=== PATIENT | female | born 1950 | race Caucasian/White ===

== ENCOUNTER 2017-09-30 04:59 | Observation (INO) | payer MEDICAID, MEDICARE ==
[2017-09-30] MEDS ORDERED: NITROGLYCERIN SL TABS 0.4 MG TAB SUBLINGUAL PRN (05:31)
--- NOTE | 2017-09-30 05:39 | ED ---
Chest Pain HPI - General Chief Complaint: Chest Pain Stated Complaint: Cardiology consult Time Seen by Provider: 09/30/17 05:13 Source: patient, EMS Mode of arrival: EMS Limitations: no limitations - History of Present Illness MD Complaint: chest pain -: hour(s) Onset: during rest Pain Location: substernal Pain Radiation: none Severity: moderate Quality: heaviness Consistency: constant Improves With: nothing Worsens With: nothing Treatments Prior to Arrival: aspirin, oxygen - Related Data On Oral Contraceptives: No Home Medications Medication Instructions Recorded Confirmed Zolpidem [Ambien] 5 mg PO HS 01/02/15 01/02/15 Previous Rx's Medication Instructions Recorded Aspirin 1 tab PO DAILY #30 chew 01/10/15 Atorvastatin [Lipitor] 20 mg PO HS #14 tab 01/10/15 Collagenase [Santyl] 1 applic TOPICAL DAILY #10 applic 01/10/15 Escitalopram [Lexapro] 10 mg PO DAILY #7 tab 01/10/15 Gabapentin 600 mg PO 0000,0600,1200,1800 #28 01/10/15 tablet Hydrocodone/Acetaminophen [[place] 1 tab PO Q6HR PRN #10 tablet 01/10/15 5-325] Isosorbide Dinitrate 30 mg PO DAILY #14 tablet 01/10/15 LORazepam [Ativan] 1 mg PO DAILY PRN #10 tab 01/10/15 Nicotine Polacrilex [Nicorette] 2 mg BUCCAL Q4HR PRN #30 gum 01/10/15 Omeprazole [PriLOSEC] 20 mg PO DAILY #14 capsule. 01/10/15 Vancomycin Oral Solution 250 mg PO Q6HR #280 ml 01/10/15 Zolpidem [Ambien] 5 mg PO HS #7 tab 01/10/15 amLODIPine [Norvasc] 10 mg PO DAILY #14 tab 01/10/15 clonazePAM [KlonoPIN] 0.25 mg PO TID@0800,1200,1600 #21 01/10/15 dose clonazePAM [KlonoPIN] 2 mg PO DAILY@1900 #7 dose 01/10/15 glipiZIDE [Glucotrol] 5 mg PO AC-BRKFST #14 tab 01/10/15 metFORMIN HCL 1 tab PO BID #28 tablet 01/10/15 metroNIDAZOLE [Flagyl] 500 mg PO TID #30 tab 01/10/15 Allergies Allergy/AdvReac Type Severity Reaction Status Date / Time tetanus and diphtheria Allergy Unknown Verified 01/02/15 20:26 toxoids [tetanus & diphtheria toxoids] adsorbed Allergy Unknown Uncoded 01/02/15 20:26 Review of Systems ROS Statement: Those systems with pertinent positive or pertinent negative responses have been documented in the HPI. ROS Other: All systems not noted in ROS Statement are negative. Constitutional: Denies: fever, chills, weakness Eyes: Denies: vision change Respiratory: Denies: cough, dyspnea, wheezes Cardiovascular: Reports: chest pain. Denies: palpitations, edema, syncope Gastrointestinal: Denies: abdominal pain, nausea, vomiting Genitourinary: Denies: dysuria, hematuria Musculoskeletal: Denies: back pain Skin: Denies: rash Neurological: Denies: headache, weakness, numbness Psychiatric: Reports: anxiety EKG Findings - EKG Results: EKG: interpreted by ERMD, sinus rhythm (Rate approximately 85 bpm), normal axis , normal ST/T - Blocks, [place], Hypertrophy, ST Abn: AV and intraventricular conduction: right bundle branch block (fixed/ intermittent, complete/incomplete) Past Medical History Past Medical History: Coronary Artery Disease (CAD), Diabetes Mellitus, Hyperlipidemia, Hypertension Additional Past Medical History / Comment(s): Osteomyelitis, arthritis, viral encephalopathy History of Any Multi-Drug Resistant Organisms: C-DIFF Date of last positivie culture/infection: 01/05/15 MDRO Source:: Stool Past Surgical History: Cholecystectomy, Hysterectomy, Orthopedic Surgery, Tonsillectomy Additional Past Surgical History / Comment(s): Amputation right great toe, Surgery on R-knee, Past Anesthesia/Blood Transfusion Reactions: No Reported Reaction Additional Past Anesthesia/Blood Transfusion Reaction / Comment(s): No previous blood transfusions. Past Psychological History: Anxiety Smoking Status: Current every day smoker Past Alcohol Use History: Abuse Past Drug Use History: Marijuana - Past Family History Father Family Medical History: Coronary Artery Disease (CAD), Myocardial Infarction ([place] ) Additional Family Medical History / Comment(s): Father at age 82 from a massive myocardial infarction. Mother Family Medical History: CVA/TIA Additional Family Medical History / Comment(s): Mother at age 76 from a CVA. Brother(s) Family Medical History: Cancer Additional Family Medical History / Comment(s): Patient has 3 brothers. One brother has from pancreatic cancer. 2 brothers are alive and one has diverticulitis. Patient does not have any sisters. She has one son that lives in [place]. General Exam Limitations: no limitations General appearance: alert, in no apparent distress, anxious Head exam: Present: atraumatic, normocephalic Eye exam: Present: normal appearance. Absent: scleral icterus, conjunctival injection ENT exam: Present: mucous membranes dry Neck exam: Present: normal inspection Respiratory exam: Present: normal lung sounds bilaterally. Absent: respiratory distress, wheezes, rales, rhonchi, stridor Cardiovascular Exam: Present: regular rate, normal rhythm, normal heart sounds. Absent: systolic murmur, diastolic murmur, rubs, gallop GI/Abdominal exam: Present: soft. Absent: distended, tenderness, guarding, rebound, mass Extremities exam: Present: normal capillary refill, other (Amputation of the first toe.). Absent: pedal edema, calf tenderness Back exam: Present: normal inspection. Absent: CVA tenderness (R), CVA tenderness (L) Neurological exam: Present: alert Skin exam: Present: warm, dry, intact, normal color. Absent: rash Course Vital Signs 09/30/17 05:09 Temperature 98.3 F Pulse Rate 88 Respiratory 17 Rate Blood Pressure 173/89 O2 Sat by Pulse 98 Oximetry Disposition Clinical Impression: Chest pain, Steroid-induced psychosis Disposition: ADMITTED IP TO THIS HOSP Condition: Good Instructions: Chest Pain (ED) Is patient prescribed a controlled substance at d/c from ED?: No Referrals: Reinaldo Randall DO [Primary Care Provider] - 1-2 days
[2017-09-30 07:44] LABS: Glucose,Whole Blood 158 mg/dL (75-99)
--- NOTE | 2017-09-30 08:17 | P.CRDCN ---
History of Present Illness Consult date: 09/30/17 Chief complaint: Chest discomfort History of present illness: This is a 67-year-old female patient with a past medical history significant for diabetes as well as significant history of smoking presented to the hospital complaining of chest discomfort. The patient was in her usual state of health until this past Thursday she started experiencing pressure across the chest without any radiation to the arms or neck or shoulders and without any associated symptoms. She did not have any shortness of breath, sweating, dizziness or lightheadedness or syncope. The patient initially presented to [facility] and subsequently she was transferred to [facility]. She stated that she underwent a heart catheterization about a year ago and that came in to be unremarkable for coronary artery disease according to her and the patient was started on medications for which she called it " small artery". She is pain-free at this point of time. The first set of cardiac enzymes came in to be unremarkable and I am in process of obtaining 2 more sets of cardiac enzymes. The EKG showed sinus rhythm without significant ST or T-wave abnormalities concerning for ischemia. The patient is diabetic. Beside that she is a smoker. No significant family history of coronary artery disease. Past Medical History Past Medical History: Coronary Artery Disease (CAD), Diabetes Mellitus, Hyperlipidemia, Hypertension Additional Past Medical History / Comment(s): Osteomyelitis, arthritis, viral encephalopathy History of Any Multi-Drug Resistant Organisms: C-DIFF Date of last positivie culture/infection: 01/05/15 MDRO Source:: Stool Past Surgical History: Cholecystectomy, Hysterectomy, Orthopedic Surgery, Tonsillectomy Additional Past Surgical History / Comment(s): Amputation right great toe, Surgery on R-knee, Past Anesthesia/Blood Transfusion Reactions: No Reported Reaction Additional Past Anesthesia/Blood Transfusion Reaction / Comment(s): No previous blood transfusions. Past Psychological History: Anxiety Smoking Status: Current every day smoker Past Alcohol Use History: Abuse Past Drug Use History: Marijuana - Past Family History Father Family Medical History: Coronary Artery Disease (CAD), Myocardial Infarction ([place] ) Additional Family Medical History / Comment(s): Father at age 82 from a massive myocardial infarction. Mother Family Medical History: CVA/TIA Additional Family Medical History / Comment(s): Mother at age 76 from a CVA. Brother(s) Family Medical History: Cancer Additional Family Medical History / Comment(s): Patient has 3 brothers. One brother has from pancreatic cancer. 2 brothers are alive and one has diverticulitis. Patient does not have any sisters. She has one son that lives in [place]. Medications and Allergies Home Medications Medication Instructions Recorded Confirmed Type Zolpidem [Ambien] 5 mg PO HS 01/02/15 01/02/15 History Aspirin 1 tab PO DAILY #30 chew 01/10/15 Rx Atorvastatin [Lipitor] 20 mg PO HS #14 tab 01/10/15 Rx Collagenase [Santyl] 1 applic TOPICAL DAILY #10 applic 01/10/15 Rx Escitalopram [Lexapro] 10 mg PO DAILY #7 tab 01/10/15 Rx Gabapentin 600 mg PO 0000,0600,1200,1800 #28 01/10/15 Rx tablet Hydrocodone/Acetaminophen [[place] 1 tab PO Q6HR PRN #10 tablet 01/10/15 Rx 5-325] Isosorbide Dinitrate 30 mg PO DAILY #14 tablet 01/10/15 Rx LORazepam [Ativan] 1 mg PO DAILY PRN #10 tab 01/10/15 Rx Nicotine Polacrilex [Nicorette] 2 mg BUCCAL Q4HR PRN #30 gum 01/10/15 Rx Omeprazole [PriLOSEC] 20 mg PO DAILY #14 capsule.dr 01/10/15 Rx Vancomycin Oral Solution 250 mg PO Q6HR #280 ml 01/10/15 Rx Zolpidem [Ambien] 5 mg PO HS #7 tab 01/10/15 Rx amLODIPine [Norvasc] 10 mg PO DAILY #14 tab 01/10/15 Rx clonazePAM [KlonoPIN] 0.25 mg PO TID@0800,1200,1600 #21 01/10/15 Rx dose clonazePAM [KlonoPIN] 2 mg PO DAILY@1900 #7 dose 01/10/15 Rx glipiZIDE [Glucotrol] 5 mg PO AC-BRKFST #14 tab 01/10/15 Rx metFORMIN HCL 1 tab PO BID #28 tablet 01/10/15 Rx metroNIDAZOLE [Flagyl] 500 mg PO TID #30 tab 01/10/15 Rx Allergies Allergy/AdvReac Type Severity Reaction Status Date / Time tetanus and diphtheria Allergy Unknown Verified 01/02/15 20:26 toxoids [tetanus & diphtheria toxoids] adsorbed Allergy Unknown Uncoded 01/02/15 20:26 Physical Exam Vitals: Vital Signs Temp Pulse Pulse Resp BP BP Pulse Ox 09/30/17 07:50 97.7 F 76 16 121/74 98 09/30/17 05:09 98.3 F 88 17 173/89 98 Intake and Output 09/29/17 09/30/17 09/30/17 22:59 06:59 14:59 Other: Weight 66.224 kg 64 kg - Constitutional General appearance: no acute distress - Respiratory Respiratory: bilateral: CTA - Cardiovascular Rhythm: regular Heart sounds: normal: S1, S2 Results Cardiac Enzymes 09/30/17 Range/Units 05:22 Troponin I <0.012 (0.000-0.034) ng/mL Current Medications Generic Name Dose Route Start Last Admin Trade Name Freq PRN Reason Stop Dose Admin Aspirin 325 mg 10/01/17 09:00 Aspirin PO DAILY ROYA Sodium Chloride 1,000 mls @ 100 mls/hr 09/30/17 05:45 Saline 0.9% IV .Q10H ROYA Nitroglycerin 0.4 mg 09/30/17 05:31 Nitrostat SUBLINGUAL Q5M PRN Chest Pain Intake and Output 09/29/17 09/30/17 09/30/17 22:59 06:59 14:59 Other: Weight 66.224 kg 64 kg Patient Weight 10/01/17 06:59 Weight 64 kg Assessment and Plan Assessment: Assessment #1 atypical chest discomfort #2 diabetes #3 significant history of smoking Plan #1 acute coronary event to be ruled out. #2 we'll obtain 2 more sets of serial cardiac enzymes #3 obtain an echocardiogram was Doppler #4 follow-up with the patient. Thank you for allowing us participate in her care.
[2017-09-30 11:59] LABS: Glucose,Whole Blood 234 mg/dL (75-99)
[2017-09-30 12:01] LABS: Creatine Kinase 204 U/L (30-135)
[2017-09-30 12:15] LABS: Creatine Kinase MB 1.5 ng/mL (0.0-2.4); Troponin I <0.012 ng/mL (0.000-0.034)
[2017-09-30] MEDS ORDERED: ALPRAZolam 0.25 MG TAB PO STA (13:59)
--- NOTE | 2017-09-30 14:04 | ECHOF ---
Referral Reason: MEASUREMENTS -------- HEIGHT: 170.2 cm WEIGHT: 64.0 kg BP: 121/74 IVSd: 1.3 cm (0.6 - 1.1) LVIDd: 2.9 cm (3.9 - 5.3) LVPWd: 1.1 cm (0.6 - 1.1) IVSs: 1.5 cm LVIDs: 1.6 cm LVPWs: 1.8 cm Ao Diam: 2.6 cm (2.0 - 3.7) AV Cusp: 1.9 cm (1.5 - 2.6) LA Diam: 2.9 cm (2.7 - 3.8) MV EXCURSION: 17.007 mm (> 18.000) MV EF SLOPE: 31 mm/s (70 - 150) EPSS: 0.4 cm MV E Hayder: 0.52 m/s MV DecT: 167 ms MV A Hayder: 0.80 m/s MV E/A Ratio: 0.65 AV maxP.89 mmHg AV meanP.13 mmHg RAP: 5.00 mmHg RVSP: 12.51 mmHg FINDINGS -------- Sinus rhythm. This was a technically good study. The left ventricular size is normal. There is mild concentric left ventricular hypertrophy. Overa ll left ventricular systolic function is normal with, an EF between 55 - 60 %. The right ventricle is normal in size and function. The left atrium is normal in size. The right atrium is normal in size. Aortic valve is trileaflet and is mildly thickened. There is trace mitral regurgitation. Mild tricuspid regurgitation present. The right ventricular systolic pressure, as measured by Doppl er, is 12.51mmHg. Pulmonic valve appears structurally normal. The aortic root size is normal. The pericardium is normal. CONCLUSIONS -------- 1. Sinus rhythm. 2. This was a technically good study. 3. The left ventricular size is normal. 4. There is mild concentric left ventricular hypertrophy. 5. Overall left ventricular systolic function is normal with, an EF between 55 - 60 %. 6. The right ventricle is normal in size and function. 7. The left atrium is normal in size. 8. The right atrium is normal in size. 9. Aortic valve is trileaflet and is mildly thickened. 10. There is trace mitral regurgitation. 11. Mild tricuspid regurgitation present. 12. The right ventricular systolic pressure, as measured by Doppler, is 12.51mmHg. 13. Pulmonic valve appears structurally normal. 14. The aortic root size is normal. 15. The pericardium is normal. PRISON TEACHER: Kathi Banks RDCS
[2017-09-30] MEDS: metFORMIN 500 MG TAB PO SCH ×2 (14:09→20:43)
[2017-09-30] MEDS: ISOSORBIDE MONONITRATE ER 30 MG TAB.ER.24H PO SCH (14:09)
[2017-09-30] MEDS: LISINOPRIL 20 MG TAB PO SCH (14:09)
[2017-09-30] MEDS: GABAPENTIN 300 MG CAP PO SCH ×3 (14:09→20:43)
[2017-09-30] MEDS: FAMOTIDINE 20 MG TAB PO SCH ×2 (14:10→19:36)
[2017-09-30] MEDS: DULoxetine HCL 60 MG CAPSULE.DR PO SCH (14:10)
--- NOTE | 2017-09-30 16:33 | P.HPIM ---
History of Present Illness H&P Date: 09/30/17 Chief Complaint: Chest pain Patient is a 67-year-old female with a known history of hypertension, hyperlipidemia, diabetes type 2 and bilateral diabetic peripheral neuropathy and nicotine addiction came to ER with complaints of chest discomfort. Patient has been having chest pressure across the chest for the past 3 days. Denied any radiation of the pain to the neck and arm. No associated nausea vomiting or diaphoresis shortness of breath. Patient was initially presented to [facility] and subsequently was transferred to [facility]. Denied any complaints of cough or sputum production. No fever no chills. Patient says that she had a cardiac catheterization several years ago was about 6-7 years ago. No history of PCI in the past. Patient says that her brother has I aortic aneurysm and heart problems. Initial workup including EKG and troponins have been negative. EKG showed normal sinus rhythm without acute ST-T wave changes. Laboratory data from [facility] was reviewed. Patient does have a history of anxiety and bipolar disorder for which patient is on Seroquel and Cymbalta. Patient is being followed by primary care physician. Never seen by psychiatry the past. Discussed with her son in detail and was told that during previous admission she became more maniac and had to admit to inpatient psychiatric unit from where she left without discharge and was taken into police custody at that time. Review of Systems Constitutional: Patient denies any fever or chills . No generalized weakness or weight loss. Abdomen: Patient denied nausea vomiting and diarrhea and abdominal pain. Cardiovascular: Patient denies any chest pain or short of breath no palpitations. Respiratory: patient denied any cough is from production. No shortness of breath Neurologic: Patient denied any numbness or tingling headache. Musculoskeletal: Patient denies any complaints of joint swelling or deformity. Skin: Negative Psychiatric: Anxious Endocrine: No heat or cold intolerance. No recent weight gain. Genitourinary: No dysuria or hematuria. All other 14 point ROS negative except the above Past Medical History Past Medical History: Coronary Artery Disease (CAD), Diabetes Mellitus, GERD/ Reflux, Hyperlipidemia, Hypertension, Liver Disease Additional Past Medical History / Comment(s): NIDDM type II, bilateral peripheral neuropathy bilateral feet, 2014 diabetic ulcer R great toe/foot with amputation, 2017 pt states she had osteomylitis R 4th toe, viral neningitis/ encephalopathy, hepatitis C tx and cured, PCOS, UTIs History of Any Multi-Drug Resistant Organisms: C-DIFF Date of last positivie culture/infection: 01/05/15 MDRO Source:: Stool Past Surgical History: Cholecystectomy, Hysterectomy, Orthopedic Surgery, Tonsillectomy Additional Past Surgical History / Comment(s): Amputation right great toe/part of foot, R knee surgery for large cyst/cartilage removed, 2005 cardiac cath showed 1 vessel disease/treated medically, hysterectomy and left a piece of the R ovary, EGD/colonoscopy. Past Anesthesia/Blood Transfusion Reactions: No Reported Reaction Additional Past Anesthesia/Blood Transfusion Reaction / Comment(s): No previous blood transfusions. Smoking Status: Current every day smoker - Past Family History Father Family Medical History: Coronary Artery Disease (CAD), Myocardial Infarction ([place] ) Additional Family Medical History / Comment(s): Father at age 82 from a massive myocardial infarction. Mother Family Medical History: CVA/TIA Additional Family Medical History / Comment(s): Mother at age 76 from a CVA. Mother had TB Brother(s) Family Medical History: Cancer Additional Family Medical History / Comment(s): Patient has 3 brothers. One brother has from pancreatic cancer. Another brother has stage IV kidney failure and an aortic aneurysm that needs surgery. Medications and Allergies Home Medications Medication Instructions Recorded Confirmed Type Aspirin 81 mg PO DAILY 09/30/17 09/30/17 History DULoxetine HCL [Cymbalta] 60 mg PO DAILY 09/30/17 09/30/17 History Gabapentin 600 mg PO QID 09/30/17 09/30/17 History Isosorbide Mononitrate ER [Imdur] 30 mg PO DAILY 09/30/17 09/30/17 History Lisinopril [Zestril] 20 mg PO DAILY 09/30/17 09/30/17 History Pravastatin Sodium [Pravachol] 80 mg PO HS 09/30/17 09/30/17 History QUEtiapine [SEROquel] 25 mg PO HS 09/30/17 09/30/17 History Ranitidine HCl [Zantac] 150 mg PO BID 09/30/17 09/30/17 History amLODIPine [Norvasc] 10 mg PO AC-SUPPER 09/30/17 09/30/17 History metFORMIN HCL 1,000 mg PO BID 09/30/17 09/30/17 History Allergies Allergy/AdvReac Type Severity Reaction Status Date / Time tetanus and diphtheria Allergy Unknown Verified 09/30/17 11:35 toxoids [tetanus & diphtheria toxoids] adsorbed Allergy Unknown Uncoded 01/02/15 20:26 Physical Exam Vitals: Vital Signs Temp Pulse Pulse Resp BP BP Pulse Ox 09/30/17 11:35 98.5 F 76 16 181/78 96 09/30/17 07:50 97.7 F 76 16 121/74 98 09/30/17 05:09 98.3 F 88 17 173/89 98 Intake and Output 09/29/17 09/30/17 09/30/17 22:59 06:59 14:59 Other: Voiding Method Toilet Weight 66.224 kg 64 kg PHYSICAL EXAMINATION: Patient is lying in the bed comfortably, no acute distress, awake alert and oriented.. HEENT: Normocephalic. Neck is supple. Pupils reactive. Nostrils clear. Oral cavity is moist. Ears reveal no drainage. Neck reveals no JVD, carotid bruits, or thyromegaly. CHEST EXAMINATION: Trachea is central. Symmetrical expansion. Lung alexandre clear to auscultation and percussion. CARDIAC: Normal S1, S2 with no gallops. No murmurs ABDOMEN: Soft. Bowel sounds normal. No organomegaly. No abdominal bruits. Extremities: reveal no edema. No clubbing or cyanosis Neurologically awake, alert, oriented x3 with well-coordinated movements. No focal deficits noted Skin: No rash or skin lesions. Psychiatric: Coperative. He anxious and wants to go home. Denied any suicidal ideation. Musculoskeletal: No joint swelling or deformity. Normal range of motion. Results Labs: Abnormal Lab Results - Last 24 Hours (Table) 09/30/17 09/30/17 09/30/17 Range/Units 07:20 11:00 11:55 POC Glucose (mg/dL) 158 H 234 H (75-99) mg/dL Total Creatine Kinase 204 H (30-135) U/L Thrombosis Risk Factor Assmnt - DVT/VTE Prophylaxis DVT/VTE Prophylaxis: Pharmacologic Prophylaxis ordered - Choose All That Apply Any of the Below Risk Factors Present?: Yes Other Risk Factors: Yes Each Risk Factor Represents 2 Points: Age 61-74 years Other congenital or acquired thrombophilia - If yes, enter type in comment: No Thrombosis Risk Factor Assessment Total Risk Factor Score: 2 Thrombosis Risk Factor Assessment Level: Low Risk Assessment and Plan Assessment: Atypical chest pain/pressure. Rule out acute coronary syndrome. Anxiety and depression Nicotine addiction Diabetes type 2 [id number] Hypertension Previous history of cardiac cath patient about 6-8 years ago DVT prophylaxis Plan: Patient will be continued on telemetry monitoring and serial EKG and troponins. We'll 2 negative. Cardiology is following. 2-D echocardiogram was ordered. We'll also consult psychiatry for further elevation of generalized anxiety and in view of previous inpatient psychiatric admission. Continue to follow closely and further recommendations based on the clinical course. Time with Patient: Greater than 30
[2017-09-30 17:29] LABS: Glucose,Whole Blood 161 mg/dL (75-99)
[2017-09-30] MEDS ORDERED: amLODIPine 10 MG TAB PO SCH (17:30)
[2017-09-30] MEDS: INSULIN ASPART 100 UNIT/ML 1 ML 10 ML VIAL SQ SCH ×2 (18:24→20:44)
[2017-09-30 18:50] LABS: Creatine Kinase 214 U/L (30-135)
[2017-09-30 19:01] LABS: Creatine Kinase MB 1.6 ng/mL (0.0-2.4); Troponin I <0.012 ng/mL (0.000-0.034)
[2017-09-30] MEDS: SODIUM CHLORIDE 0.9% 1,000 ML IV SCH ×2 (19:35→22:38)
[2017-09-30 20:53] LABS: Glucose,Whole Blood 223 mg/dL (75-99)
[2017-09-30] MEDS ORDERED: QUEtiapine 25 MG TAB PO SCH (21:00)
[2017-09-30] MEDS ORDERED: PRAVASTATIN SODIUM 80 MG TAB PO SCH (21:00)
[2017-10-01 02:37] LABS: Hemoglobin A1C 7.6 % (4.0-6.0)
[2017-10-01 03:19] LABS: Cholesterol 204 mg/dL (<200); HDL Cholesterol 57 mg/dL (40-60); LDL Cholesterol,Calculated 98 mg/dL (0-99); Triglycerides 244 mg/dL (<150)
[2017-10-01 03:45] VITALS: RESP 16
[2017-10-01 07:35] LABS: Glucose,Whole Blood 146 mg/dL (75-99)
[2017-10-01] MEDS ORDERED: ASPIRIN 325 MG TAB PO SCH (09:00)
[2017-10-01] MEDS ORDERED: ASPIRIN 81 MG PO SCH (09:00)
[2017-10-01] MEDS: LISINOPRIL 20 MG TAB PO SCH (10:14)
[2017-10-01] MEDS: DULoxetine HCL 60 MG CAPSULE.DR PO SCH (10:15)
[2017-10-01] MEDS: FAMOTIDINE 20 MG TAB PO SCH (10:15)
[2017-10-01] MEDS: INSULIN ASPART 100 UNIT/ML 1 ML 10 ML VIAL SQ SCH (10:16)
[2017-10-01] MEDS: GABAPENTIN 300 MG CAP PO SCH (10:16)
[2017-10-01] MEDS: metFORMIN 500 MG TAB PO SCH (10:16)
[2017-10-01] MEDS: ISOSORBIDE MONONITRATE ER 30 MG TAB.ER.24H PO SCH (10:16)
[2017-10-01 11:49] VITALS: BP 110/70; PULSE 72; TEMP 98
--- NOTE | 2017-10-01 13:41 | P.PN ---
Subjective Mrs. Choudhary is a pleasant 67-year-old female past medical history significant for diabetes, hypertension and dyslipidemia. Cardiac enzymes negative x3 including set at [facility]. Echo 15 reveals preserved left ventricular systolic function with ejection fraction 55-60%. Blood pressure 110/70 heart rate 72 afebrile maintaining oxygen saturation on room air. Patient was seen in consultation by psychiatric services steroid induced rian. As well as noncompliance with her antipsychotic medication. Denies any further symptoms of chest discomfort, shortness of breath, dizziness or palpitations. Telemetry tracings have been unremarkable. Objective - Vital Signs Vital signs: Vital Signs Temp 98 F 10/01/17 11:48 Pulse 72 10/01/17 11:48 Resp 16 10/01/17 11:48 BP 110/70 10/01/17 11:48 Pulse Ox 93 L 10/01/17 11:48 Intake & Output 09/30/17 10/01/17 10/01/17 18:59 06:59 18:59 Intake Total 350 240 Balance 350 240 Weight 64 kg Intake: Oral 350 240 Other: Voiding Method Toilet Toilet Toilet - Exam GENERAL: Well-appearing, well-nourished and in no acute distress. NECK: Supple without JVD or thyromegaly. LUNGS: Breath sounds clear to auscultation bilaterally. Respiration equal and unlabored. No wheezes, rales or rhonchi. HEART: Regular rate and rhythm without murmurs, rubs or gallops. S1 and S2 heard. EXTREMITIES: Normal range of motion, no edema. No clubbing or cyanosis. Peripheral pulses intact. - Labs Labs: Abnormal Lab Results - Last 24 Hours (Table) 09/30/17 09/30/17 09/30/17 Range/Units 05:22 17:27 18:05 POC Glucose (mg/dL) 161 H (75-99) mg/dL Total Creatine Kinase 214 H (30-135) U/L Triglycerides 244 H (<150) mg/dL Cholesterol 204 H (<200) mg/dL 09/30/17 10/01/17 Range/Units 20:23 06:43 POC Glucose (mg/dL) 223 H 146 H (75-99) mg/dL Total Creatine Kinase (30-135) U/L Triglycerides (<150) mg/dL Cholesterol (<200) mg/dL Assessment and Plan Assessment: ASSESSMENT Chest pain, atypical. Resolved. An acute coronary event has been ruled out. Hypertension Dyslipidemia PLAN Stable from a cardiac perspective. Follow up with primary bench lay out technician upon discharge. She states she sees a bench lay out technician out of town but unsure of name. If not she can see Dr. Tracey. Nurse Practitioner note has been reviewed, I agree with a documented findings and plan of care. Patient was seen and examined.
== END 2017-10-01 12:35 | disposition home or self-care (01) ==
LOC: EC 04:59 → 3OBS 05:31 → EEVIPCON 05:31 → 3OBS 10-01 11:02
PROVIDERS: ADMIT Internal Medicine; ATTEND Internal Medicine
DX: R07.89 Other chest pain (principal); I25.10 Atherosclerotic heart disease of native coronary artery without angina pectoris; E11.42 Type 2 diabetes mellitus with diabetic polyneuropathy; I10 Essential (primary) hypertension; F29 Unspecified psychosis not due to a substance or known physiological condition; T38.0X5A Adverse effect of glucocorticoids and synthetic analogues, initial encounter; E28.2 Polycystic ovarian syndrome; E78.5 Hyperlipidemia, unspecified; F31.9 Bipolar disorder, unspecified; F41.1 Generalized anxiety disorder; Z91.19 Patient's noncompliance with other medical treatment and regimen; M19.90 Unspecified osteoarthritis, unspecified site; Z16.24 Resistance to multiple antibiotics; F17.200 Nicotine dependence, unspecified, uncomplicated; Z79.82 Long term (current) use of aspirin; Z79.84 Long term (current) use of oral hypoglycemic drugs; Z79.899 Other long term (current) drug therapy; Z88.7 Allergy status to serum and vaccine; Z90.49 Acquired absence of other specified parts of digestive tract; Z89.411 Acquired absence of right great toe; Z86.61 Personal history of infections of the central nervous system; Z87.39 Personal history of other diseases of the musculoskeletal system and connective tissue; Z90.710 Acquired absence of both cervix and uterus; Z82.49 Family history of ischemic heart disease and other diseases of the circulatory system; Z82.3 Family history of stroke; Z80.0 Family history of malignant neoplasm of digestive organs; Z83.79 Family history of other diseases of the digestive system; Z83.1 Family history of other infectious and parasitic diseases; Z84.1 Family history of disorders of kidney and ureter
CPT/HCPCS: 99285 ×2; 36415; 93005; 93306; 80061; 82550; 82553; 84484; 83036; G0378 ×2

== ENCOUNTER 2018-02-12 18:46 | Emergency (ER) | payer MEDICARE ==
--- NOTE | 2018-02-12 20:07 | ED ---
Psych HPI - General Source: patient, police Mode of arrival: ambulatory <Julia Olivarez - Last Filed: 02/13/18 00:31> <Jakub Roldan - Last Filed: 02/13/18 02:56> - General Chief Complaint: Psychiatric Symptoms Stated Complaint: Petitioned Time Seen by Provider: 02/12/18 19:50 - History of Present Illness Initial Comments: 67-year-old female patient is brought into the emergency department by police on a pickup order for possible self-harm. Patient states that she has been having arguments with her digital production manager. States she has called the police multiple times it doesn't seem like they are listing her anything to be blowing her. She states that today she did call the composition molder and stated that she wanted to harm others, she states she felt this way so she could get this year about this as she has to deal with the [place] police any longer. Patient denies any current suicidal or homicidal ideation. She denies any current physical symptoms or concerns. The patient apparently has a legal guardian who states that she is concerned that the patient is not admitted to the mental health unit she will harm herself. supervisor frame sample and pattern order states she was sending threatening messages to her digital production manager. Patient denies any history of suicide attempt. Patient denies any recent rash, fever, chills, shortness breath, chest pain, abdominal pain, nausea, vomiting, diarrhea, constipation, back pain, numbness, tingling, dizziness, weakness, hematuria, dysuria, urinary urgency, urinary frequency, headache, visual changes, or any other complaints. (Julia Olivarez) - Related Data Home Medications Medication Instructions Recorded Confirmed Aspirin 81 mg PO DAILY 09/30/17 02/12/18 DULoxetine HCL [Cymbalta] 60 mg PO DAILY 09/30/17 02/12/18 Gabapentin 600 mg PO QID 09/30/17 02/12/18 Isosorbide Mononitrate ER [Imdur] 30 mg PO DAILY 09/30/17 02/12/18 Pravastatin Sodium [Pravachol] 80 mg PO HS 09/30/17 02/12/18 Ranitidine HCl [Zantac] 150 mg PO BID 09/30/17 02/12/18 metFORMIN HCL 1,000 mg PO BID 09/30/17 02/12/18 INSULIN LISPRO (humaLOG) [humaLOG] See Protocol SQ DIRECTED 02/12/18 02/12/18 Lisinopril 30 mg PO DAILY 02/12/18 02/12/18 Multivitamins, Thera [Multivitamin 1 tab PO DAILY 02/12/18 02/12/18 (formulary)] QUEtiapine [SEROquel] 200 mg PO HS 02/12/18 02/12/18 amLODIPine [Norvasc] 10 mg PO DAILY 02/12/18 02/12/18 hydrOXYzine PAMOATE [Vistaril] 50 mg PO Q12HR PRN 02/12/18 02/12/18 lamoTRIgine [LaMICtal] 100 mg PO HS 02/12/18 02/12/18 lamoTRIgine [LaMICtal] 200 mg PO HS 02/12/18 02/12/18 Allergies Allergy/AdvReac Type Severity Reaction Status Date / Time lithium Allergy Unknown Verified 02/12/18 20:35 tetanus and diphtheria Allergy Unknown Verified 02/12/18 20:35 toxoids [tetanus & diphtheria toxoids] adsorbed Allergy Unknown Uncoded 02/12/18 18:52 Review of Systems ROS Other: All systems not noted in ROS Statement are negative. <Julia Olivarez - Last Filed: 02/13/18 00:31> ROS Other: All systems not noted in ROS Statement are negative. <Jakub Roldan - Last Filed: 02/13/18 02:56> ROS Statement: Those systems with pertinent positive or pertinent negative responses have been documented in the HPI. 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 Past Anesthesia/Blood Transfusion Reactions: No Reported Reaction Additional Past Anesthesia/Blood Transfusion Reaction / Comment(s): No previous blood transfusions. Past Psychological History: Anxiety Smoking Status: Current every day smoker - Past Family History Father Family Medical History: Coronary Artery Disease (CAD), Myocardial Infarction ([place] ) Additional Family Medical History / Comment(s): Father at age 82 from a massive myocardial infarction. Mother Family Medical History: CVA/TIA Additional Family Medical History / Comment(s): Mother at age 76 from a CVA. Mother had TB Brother(s) Family Medical History: Cancer Additional Family Medical History / Comment(s): Patient has 3 brothers. One brother has from pancreatic cancer. Another brother has stage IV kidney failure and an aortic aneurysm that needs surgery. <Julia Olivarez M - Last Filed: 02/13/18 00:31> General Exam Limitations: no limitations General appearance: alert, in no apparent distress, other (Physical well- developed, well-nourished adult female patient in no acute distress. Vital signs upon presentation are temperature 98.0F, pulse 106, respirations 22, blood pressure 157/77, pulse ox 97% on room air.) Eye exam: Present: normal appearance, PERRL, EOMI. Absent: scleral icterus, conjunctival injection, periorbital swelling ENT exam: Present: normal exam, normal oropharynx, mucous membranes moist Respiratory exam: Present: normal lung sounds bilaterally. Absent: respiratory distress, wheezes, rales, rhonchi, stridor Cardiovascular Exam: Present: regular rate, normal rhythm, normal heart sounds. Absent: systolic murmur, diastolic murmur, rubs, gallop, clicks GI/Abdominal exam: Present: soft, normal bowel sounds. Absent: distended, tenderness, guarding, rebound, rigid Neurological exam: Present: alert, oriented X3, CN II-XII intact Psychiatric exam: Present: normal affect, normal mood Skin exam: Present: warm, dry, intact, normal color. Absent: rash <Julia Olivarez M - Last Filed: 02/13/18 00:31> Vital Signs 02/12/18 02/13/18 18:50 02:11 Temperature 98 F Pulse Rate 106 H 74 Respiratory 22 16 Rate Blood Pressure 157/77 119/65 O2 Sat by Pulse 97 98 Oximetry Medical Decision Making - Lab Data Result diagrams: 02/12/18 21:02 02/12/18 21:02 - EKG Data -: EKG Interpreted by Fl <Julia Olivarez - Last Filed: 02/13/18 00:31> - Lab Data Result diagrams: 02/12/18 21:02 02/12/18 21:02 <Jakub Roldan - Last Filed: 02/13/18 02:56> - Lab Data Lab Results 02/12/18 02/12/18 02/13/18 Range/Units 21:02 21:02 02:00 WBC 11.5 H (3.8-10.6) k/uL RBC 4.76 (3.80-5.40) m/uL Hgb 14.5 (11.4-16.0) gm/dL Hct 43.1 (34.0-46.0) % MCV 90.6 (80.0-100.0) fL MCH 30.4 (25.0-35.0) pg MCHC 33.5 (31.0-37.0) g/dL RDW 13.0 (11.5-15.5) % Plt Count 405 (150-450) k/uL Neutrophils % 57 % Lymphocytes % 33 % Monocytes % 4 % Eosinophils % 3 % Basophils % 1 % Neutrophils # 6.6 (1.3-7.7) k/uL Lymphocytes # 3.9 (1.0-4.8) k/uL Monocytes # 0.5 (0-1.0) k/uL Eosinophils # 0.4 (0-0.7) k/uL Basophils # 0.1 (0-0.2) k/uL Sodium 138 (137-145) mmol/L Potassium 4.7 (3.5-5.1) mmol/L Chloride 107 (98-107) mmol/L Carbon Dioxide 23 (22-30) mmol/L Anion Gap 8 mmol/L BUN 19 H (7-17) mg/dL Creatinine 0.94 (0.52-1.04) mg/dL Est GFR (CKD-EPI)AfAm 73 (>60 ml/min/1.73 sqM) Est GFR (CKD-EPI)NonAf 63 (>60 ml/min/1.73 sqM) Glucose 97 (74-99) mg/dL Calcium 10.5 H (8.4-10.2) mg/dL Total Bilirubin 0.4 (0.2-1.3) mg/dL AST 25 (14-36) U/L ALT 28 (9-52) U/L Alkaline Phosphatase 98 (38-126) U/L Total Protein 7.2 (6.3-8.2) g/dL Albumin 4.3 (3.5-5.0) g/dL Urine Color Yellow Urine Appearance Cloudy H (Clear) Urine pH 5.5 (5.0-8.0) Ur Specific [place] 1.025 (1.001-1.035) Urine Protein Trace H (Negative) Urine Glucose (UA) Negative (Negative) Urine Ketones Trace H (Negative) Urine Blood Negative (Negative) Urine Nitrite Negative (Negative) Urine Bilirubin Negative (Negative) Urine Urobilinogen 2.0 (<2.0) mg/dL Ur Leukocyte Esterase Large H (Negative) Urine RBC 9 H (0-5) /hpf Urine WBC 85 H (0-5) /hpf Ur Squamous Epith Cells 7 H (0-4) /hpf Urine Bacteria Rare H (None) /hpf Urine Mucus Rare H (None) /hpf Urine Opiates Screen Not Detected (NotDetected) Ur Oxycodone Screen Not Detected (NotDetected) Urine Methadone Screen Not Detected (NotDetected) Ur Propoxyphene Screen Not Detected (NotDetected) Ur Barbiturates Screen Not Detected (NotDetected) U Tricyclic Antidepress Detected H (NotDetected) Ur Phencyclidine Scrn Not Detected (NotDetected) Ur Amphetamines Screen Not Detected (NotDetected) U Methamphetamines Scrn Not Detected (NotDetected) U Benzodiazepines Scrn Not Detected (NotDetected) Urine Cocaine Screen Not Detected (NotDetected) U Marijuana (THC) Screen Detected H (NotDetected) - EKG Data EKG Comments: EKG obtained at 2102 shows normal sinus rhythm with a right bundle branch block. Ventricular rate 73, UT interval 200, QRS duration 134, QT 412, QTC 453. (Julia Olivarez) Disposition <Julia Olivarez - Last Filed: 02/13/18 00:31> Is patient prescribed a controlled substance at d/c from ED?: No <Jakub Roldan - Last Filed: 02/13/18 02:56> Clinical Impression: Adjustment reaction Disposition: HOME SELF-CARE Condition: Good Instructions: Mood Disorders (ED) Referrals: Reinaldo Randall DO [Primary Care Provider] - 1-2 days
[2018-02-12 21:52] LABS: Basophils # (A) 0.1 k/uL (0-0.2); Basophils % (A) 1 %; Eosinophils # (A) 0.4 k/uL (0-0.7); Eosinophils % (A) 3 %; HCT 43.1 % (34.0-46.0); HGB 14.5 gm/dL (11.4-16.0); Lymphocytes # (A) 3.9 k/uL (1.0-4.8); Lymphocytes % (A) 33 %; MCH 30.4 pg (25.0-35.0); MCHC 33.5 g/dL (31.0-37.0); MCV 90.6 fL (80.0-100.0); Mean Platelet Volume 6.6; Monocytes # (A) 0.5 k/uL (0-1.0); Monocytes % (A) 4 %; Neutrophils # (A) 6.6 k/uL (1.3-7.7); Neutrophils % (A) 57 %; Platelet Count 405 k/uL (150-450); RBC 4.76 m/uL (3.80-5.40); WBC 11.5 k/uL (3.8-10.6)
[2018-02-12 21:55] LABS: Albumin 4.3 g/dL (3.5-5.0); Calcium 10.5 mg/dL (8.4-10.2); Potassium 4.7 mmol/L (3.5-5.1); Total Bilirubin 0.4 mg/dL (0.2-1.3); Total Protein 7.2 g/dL (6.3-8.2)
[2018-02-13 02:12] VITALS: PULSE 74
[2018-02-13] MEDS ORDERED: QUEtiapine 200 MG TAB PO STA (02:32)
[2018-02-13] MEDS ORDERED: lamoTRIgine 100 MG TAB PO STA (02:32)
[2018-02-13 02:35] LABS: Appearance,Urine Cloudy (Clear); Bacteria,Urine Rare /hpf; Bilirubin,Urine Negative (Negative); Blood,Urine Negative (Negative); Color,Urine Yellow; Glucose,Urine (UA) Negative (Negative); Ketones,Urine Trace (Negative); Leukocyte Esterase,Urine Large (Negative); Mucus,Urine Rare /hpf; Nitrite,Urine Negative (Negative); PH, Urine 5.5 (5.0-8.0); Protein,Urine Trace (Negative); RBC,Urine 9 /hpf (0-5); Specific Gravity,Urine 1.025 (1.001-1.035); Squamous Epithelial Cell,Urine 7 /hpf (0-4); WBC,Urine 85 /hpf (0-5)
[2018-02-13 02:43] LABS: Amphetamine Screen,Urine Not Detected (NotDetected); Barbiturate Screen,Urine Not Detected (NotDetected); Benzodiazepines Screen,Urine Not Detected (NotDetected); Cocaine Screen,Urine Not Detected (NotDetected); Methadone Screen, Urine Not Detected (NotDetected); Opiate Screen,Urine Not Detected (NotDetected); Oxycodone Screen, Urine Not Detected (NotDetected); Phencyclidine Screen,Urine Not Detected (NotDetected); Tricyclic Antidepressant,Urine Detected (NotDetected); Urn Cannabinoid Scrn Detected (NotDetected)
[2018-02-13 03:56] VITALS: BP 159/82; RESP 18; TEMP 98
== END 2018-02-13 03:56 | disposition home or self-care (01) ==
LOC: EC 18:46 → EEVIPCON 18:46 → EC 02-13 03:56
DX: F43.20 Adjustment disorder, unspecified (principal); I25.10 Atherosclerotic heart disease of native coronary artery without angina pectoris; E11.40 Type 2 diabetes mellitus with diabetic neuropathy, unspecified; K21.9 Gastro-esophageal reflux disease without esophagitis; E78.5 Hyperlipidemia, unspecified; I10 Essential (primary) hypertension; F41.9 Anxiety disorder, unspecified; F17.200 Nicotine dependence, unspecified, uncomplicated; Z95.818 Presence of other cardiac implants and grafts; Z79.82 Long term (current) use of aspirin; Z79.4 Long term (current) use of insulin; Z79.899 Other long term (current) drug therapy; Z91.048 Other nonmedicinal substance allergy status; Z88.7 Allergy status to serum and vaccine
CPT/HCPCS: 36415; 80053; 80306; 81001; 82075; 85025; 93005; 99285

== ENCOUNTER → 2018-04-01 | Outpatient (CLI) | payer MEDICARE ==
--- NOTE | 2018-04-01 16:40 | XR ---
EXAMINATION TYPE: XR chest 2V DATE OF EXAM: 04/01/2018 COMPARISON: 01/10/2015 HISTORY: Chest pain TECHNIQUE: Frontal and lateral views of the chest are obtained. FINDINGS: There is no focal air space opacity, pleural effusion, or pneumothorax seen. The cardiac silhouette size is within normal limits. The osseous structures are intact. IMPRESSION: No acute cardiopulmonary process.
--- NOTE | 2018-04-02 12:15 | ECHOF ---
Referral Reason:R07.9 Chest pain MEASUREMENTS -------- HEIGHT: 170.2 cm WEIGHT: 63.5 kg BP: RVIDd: 2.8 cm (< 3.3) IVSd: 1.2 cm (0.6 - 1.1) LVIDd: 3.1 cm (3.9 - 5.3) LVPWd: 1.3 cm (0.6 - 1.1) IVSs: 1.4 cm LVIDs: 2.4 cm LVPWs: 1.7 cm LA Diam: 2.9 cm (2.7 - 3.8) MV EXCURSION: 17.354 mm (> 18.000) MV EF SLOPE: 118 mm/s (70 - 150) EPSS: 0.3 cm MV E Hayder: 0.34 m/s MV DecT: 210 ms MV A Hayder: 1.02 m/s MV E/A Ratio: 0.33 RAP: 5.00 mmHg RVSP: 11.68 mmHg FINDINGS -------- Sinus rhythm. This was a technically adequate study. The left ventricular size is normal. There is borderline concentric left ventricular hypertrophy. Overall left ventricular systolic function is low-normal with, an EF between 50 - 55 %. The right ventricle is normal in size. The left atrial size is normal. The right atrial size is normal. There is mild aortic valve sclerosis. There is no evidence of aortic regurgitation. Mild mitral annular calcification present. Mild mitral regurgitation is present. Mild tricuspid regurgitation present. There is no evidence of pulmonary hypertension. The right v entricular systolic pressure, as measured by Doppler, is 11.68mmHg. There is no pulmonic regurgitation present. The aortic root size is normal. There is no pericardial effusion. CONCLUSIONS -------- 1. The left ventricular size is normal. 2. There is borderline concentric left ventricular hypertrophy. 3. Overall left ventricular systolic function is low-normal with, an EF between 50 - 55 %. 4. The right ventricle is normal in size. 5. The left atrial size is normal. 6. The right atrial size is normal. 7. There is mild aortic valve sclerosis. 8. Mild mitral annular calcification present. 9. Mild mitral regurgitation is present. 10. Mild tricuspid regurgitation present. 11. There is no evidence of pulmonary hypertension. 12. The right ventricular systolic pressure, as measured by Doppler, is 11.68mmHg. 13. There is no pulmonic regurgitation present. 14. The aortic root size is normal. 15. There is no pericardial effusion. TAILINGS WORKER: Martina Herrera RDCS
== END | disposition home or self-care (01) ==
LOC: RADECHMAIN 15:10
PROVIDERS: ATTEND Internal Medicine
DX: I08.3 Combined rheumatic disorders of mitral, aortic and tricuspid valves (principal); I10 Essential (primary) hypertension
CPT/HCPCS: 71046; 93306

== ENCOUNTER 2019-10-18 01:15 | Inpatient (IN) | payer MEDICARE ==
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
[2019-10-18 02:38] LABS: Basophils # (A) 0.2 k/uL (0-0.2); Basophils % (A) 1 %; Eosinophils # (A) 0.4 k/uL (0-0.7); Eosinophils % (A) 3 %; HCT 46.7 % (34.0-46.0); HGB 15.3 gm/dL (11.4-16.0); Lymphocytes # (A) 4.3 k/uL (1.0-4.8); Lymphocytes % (A) 36 %; MCH 30.8 pg (25.0-35.0); MCHC 32.8 g/dL (31.0-37.0); MCV 93.8 fL (80.0-100.0); Mean Platelet Volume 7.1; Monocytes # (A) 0.5 k/uL (0-1.0); Monocytes % (A) 5 %; Neutrophils # (A) 6.5 k/uL (1.3-7.7); Neutrophils % (A) 55 %; Platelet Count 508 k/uL (150-450); RBC 4.98 m/uL (3.80-5.40); RDW 12.3 % (11.5-15.5)
[2019-10-18 02:47] LABS: ALT 43 U/L (4-34); AST 45 U/L (14-36); Acetaminophen <10.0 ug/mL; African American GFR (CKD) 61 (>60 ml/min/1.73 sqM); Alcohol <10 mg/dL; Alkaline Phosphatase 94 U/L (38-126); Anion Gap 12 mmol/L; Blood Urea Nitrogen 19 mg/dL (7-17); Calcium 10.5 mg/dL (8.4-10.2); Carbon Dioxide 20 mmol/L (22-30); Chloride 103 mmol/L (98-107); Glucose 215 mg/dL (74-99); Non-African American GFR(CKD) 53 (>60 ml/min/1.73 sqM); Potassium 4.5 mmol/L (3.5-5.1); Salicylate <1.0 mg/dL; Sodium 135 mmol/L (137-145); Total Bilirubin 0.5 mg/dL (0.2-1.3); Total Protein 7.6 g/dL (6.3-8.2)
[2019-10-18 02:52] LABS: Appearance,Urine Cloudy (Clear); Bilirubin,Urine Negative (Negative); Blood,Urine Negative (Negative); Color,Urine Light Yellow; Glucose,Urine (UA) 3+ (Negative); Ketones,Urine Negative (Negative); Leukocyte Esterase,Urine Moderate (Negative); Nitrite,Urine Negative (Negative); Protein,Urine Negative (Negative); RBC,Urine 3 /hpf (0-5); Specific Gravity,Urine 1.005 (1.001-1.035); Squamous Epithelial Cell,Urine 1 /hpf (0-4); Urobilinogen,Urine <2.0 mg/dL (<2.0); WBC,Urine 14 /hpf (0-5)
[2019-10-18 02:56] LABS: Amphetamine Screen,Urine Not Detected (NotDetected); Barbiturate Screen,Urine Not Detected (NotDetected); Benzodiazepines Screen,Urine Not Detected (NotDetected); Cocaine Screen,Urine Not Detected (NotDetected); Methadone Screen, Urine Not Detected (NotDetected); Opiate Screen,Urine Not Detected (NotDetected); Oxycodone Screen, Urine Not Detected (NotDetected); Phencyclidine Screen,Urine Not Detected (NotDetected); Tricyclic Antidepressant,Urine Detected (NotDetected); Urn Cannabinoid Scrn Detected (NotDetected)
[2019-10-18 03:53] LABS: Glucose,Whole Blood 235 mg/dL (75-99)
[2019-10-18] MEDS: INSULIN ASPART (NovoLOG) 100 UNIT/ML VIAL SQ SCH ×3 (03:58→20:01)
[2019-10-18 05:02] LABS: Glucose,Whole Blood 244 mg/dL (75-99)
[2019-10-18] MEDS ORDERED: INSULIN ASPART (NovoLOG) 100 UNIT/ML VIAL SQ ONE (05:05)
[2019-10-18 09:02] LABS: Glucose,Whole Blood 192 mg/dL (75-99)
[2019-10-18] MEDS ORDERED: LORazepam 1 MG TAB PO STA (09:55)
[2019-10-18] MEDS: GABAPENTIN 400 MG CAP PO SCH ×2 (10:34→22:45)
[2019-10-18] MEDS ORDERED: QUEtiapine 100 MG TAB PO STA (12:14)
[2019-10-18] MEDS ORDERED: lamoTRIgine 100 MG TAB PO STA (12:14)
[2019-10-18] MEDS ORDERED: polyethylene glycoL 3350 17 GM POWD.PACK PO STA (14:47)
[2019-10-18 15:15] LABS: Glucose,Whole Blood 249 mg/dL (75-99)
[2019-10-18 19:49] LABS: Glucose,Whole Blood 313 mg/dL (75-99)
[2019-10-18] MEDS: carvediloL 6.25 MG TAB PO SCH (20:02)
[2019-10-18] MEDS ORDERED: carvediloL 6.25 MG TAB PO SCH (21:00)
[2019-10-18] MEDS ORDERED: IBUPROFEN 800 MG TAB PO PRN (21:31)
[2019-10-18] MEDS ORDERED: MAG HYDROX/AL HYDROX/SIMETH 30 ML CUP PO PRN (21:33)
[2019-10-18] MEDS ORDERED: MAGNESIUM HYDROXIDE 2,400 MG/10 ML CUP PO PRN (21:33)
[2019-10-18] MEDS ORDERED: LORazepam 2 MG/ML INJ IM PRN (21:35)
[2019-10-18] MEDS ORDERED: ACETAMINOPHEN TAB 325 MG TAB PO PRN (22:00)
[2019-10-18] MEDS ORDERED: QUEtiapine 100 MG TAB PO SCH (22:00)
[2019-10-18] MEDS ORDERED: INSULIN DETEMIR (LEVEMIR) 100 UNIT/ML SYR SQ SCH ×2 (22:00)
[2019-10-18 22:50] LABS: Glucose,Whole Blood 276 mg/dL (75-99)
--- NOTE | 2019-10-19 01:17 | P.CONS ---
History of Present Illness - Reason for Consult Consult date: 10/19/19 - History of Present Illness The patient is a 69-year-old female with a PMH of hypertension, hyperlipidemia, and type II DM who was brought in due to disorganized thought process and features of depression. She was admitted to the mental health unit where she was seen and evaluated earlier today. The patient noted feeling somewhat better and denied any active complaints. She denied chest pain, shortness of breath, fever, chills, nausea, vomiting. She reports taking insulin at home 25 units of Levemir at bedtime and 35 units in the morning. She also endorsed compliance with her remaining medications. Review of Systems Pertinent positives and negatives as discussed in HPI, a complete review of systems was performed and all other systems are negative. Past Medical History Past Medical History: Coronary Artery Disease (CAD), Diabetes Mellitus, GERD/Reflux, Hyperlipidemia, Hypertension, Liver Disease Additional Past Medical History / Comment(s): states "I have a purple bump on the inside of my lip",NIDDM type II, bilateral peripheral neuropathy bilateral feet, 2014 diabetic ulcer R great toe/foot with amputation, 2016 pt states she had osteomylitis R 4th toe, viral neningitis/encephalopathy, hepatitis C tx and cured, PCOS, UTIs History of Any Multi-Drug Resistant Organisms: C-DIFF Year Discovered:: 01/05/15 MDRO Source:: Stool Past Surgical History: Cholecystectomy, Hysterectomy, Orthopedic Surgery, Tonsillectomy Additional Past Surgical History / Comment(s): Amputation right great toe/part of foot, R knee surgery for large cyst/cartilage removed, 2005 cardiac cath showed 1 vessel disease/treated medically, hysterectomy and left a piece of the R ovary, EGD/colonoscopy. Past Anesthesia/Blood Transfusion Reactions: No Reported Reaction Additional Past Anesthesia/Blood Transfusion Reaction / Comm: No previous blood transfusions. Past Psychological History: Anxiety, Bipolar, PTSD Smoking Status: Current every day smoker Past Alcohol Use History: Abuse Past Drug Use History: Marijuana - Past Family History Father Family Medical History: Coronary Artery Disease (CAD), Myocardial Infarction ([place]) Additional Family Medical History / Comment(s): Father at age 82 from a massive myocardial infarction. Mother Family Medical History: CVA/TIA Additional Family Medical History / Comment(s): Mother at age 76 from a CVA. Mother had TB Brother(s) Family Medical History: Cancer Additional Family Medical History / Comment(s): Patient has 3 brothers. One brother has from pancreatic cancer. Another brother has stage IV kidney failure and an aortic aneurysm that needs surgery. Medications and Allergies Home Medications Medication Instructions Recorded Confirmed Type Isosorbide Mononitrate ER [Imdur] 30 mg PO QAM 09/30/17 10/18/19 History metFORMIN HCL 1,000 mg PO BID 09/30/17 10/18/19 History lamoTRIgine [LaMICtal] 200 mg PO HS 02/12/18 10/18/19 History lisinopriL 30 mg PO DAILY 02/12/18 10/18/19 History Aspirin EC [Ecotrin Low Dose] 81 mg PO DAILY 10/18/19 10/18/19 History Atorvastatin [Lipitor] 10 mg PO HS 10/18/19 10/18/19 History Carvedilol [Coreg] 6.25 mg PO BID 10/18/19 10/18/19 History Ergocalciferol [Vitamin D2] 50,000 unit PO Q7D 10/18/19 10/18/19 History Gabapentin 800 mg PO TID 10/18/19 10/18/19 History Ibuprofen [Motrin] 800 mg PO Q8H PRN 10/18/19 10/18/19 History Insulin Glargine,Hum.rec.anlog 55 unit SQ HS 10/18/19 10/18/19 History [Lantus Solostar] Omeprazole [PriLOSEC] 20 mg PO DAILY 10/18/19 10/18/19 History QUEtiapine FUMARATE 200 mg PO DAILY 10/18/19 10/18/19 History glipiZIDE [Glucotrol] 10 mg PO BID 10/18/19 10/18/19 History Allergies Allergy/AdvReac Type Severity Reaction Status Date / Time lithium AdvReac severe Verified 10/18/19 07:57 tremors tetanus and diphtheria AdvReac chest Verified 10/18/19 07:57 toxoids pain,high [tetanus & diphtheria blood toxoids] pressure Physical Exam Vitals: Vital Signs Temp Pulse Resp BP Pulse Ox 10/18/19 21:18 97 F L 92 14 116/73 95 10/18/19 19:51 94 12 133/72 96 10/18/19 16:32 95 16 108/65 98 10/18/19 14:27 97.7 F 87 18 121/77 100 10/18/19 12:31 92 12 114/76 98 10/18/19 10:35 97.4 F L 87 18 137/85 96 10/18/19 01:29 169/95 10/18/19 01:19 97.3 F L 94 16 192/100 98 General: non toxic, no distress, appears at stated age, overweight Derm: no unusual rashes/lesions no unusual ecchymoses, warm, dry Head: atraumatic, normocephalic, symmetric Eyes: EOMI, no lid lag, anicteric sclera, pupils equal round reactive to light ENT: Nose and ears atraumatic, no thrush, no pharyngeal erythema Neck: No thyromegaly, no cervical lymphadenopathy, trachea midline, supple Mouth: no lip lesion, mucus membranes moist Cardiovascular: S1S2 reg, no murmur, positive posterior tibial pulse bilateral, no edema, capillary refill less than 2 seconds Lungs: CTA bilateral, no rhonchi, no rales , no accessory muscle use Abdominal: soft, nontender to palpation, no guarding, no appreciable organomegaly, normal bowel sounds Ext: no gross muscle atrophy, muscle strength 5 out of 5 in all 4 extremities grossly, no contractures, Neuro: CN II-XI grossly intact, light touch intact all 4 extremities, finger to nose within normal limits, Psych: Alert, oriented, appropriate affect Results CBC & Chem 7: 10/18/19 02:30 10/18/19 02:30 Labs: Abnormal Lab Results - Last 24 Hours (Table) 10/18/19 10/18/19 10/18/19 Range/Units 02:30 02:30 02:30 WBC 12.0 H (3.8-10.6) k/uL Hct 46.7 H (34.0-46.0) % Plt Count 508 H (150-450) k/uL Sodium 135 L (137-145) mmol/L Carbon Dioxide 20 L (22-30) mmol/L BUN 19 H (7-17) mg/dL Creatinine 1.08 H (0.52-1.04) mg/dL Glucose 215 H (74-99) mg/dL POC Glucose (mg/dL) (75-99) mg/dL Calcium 10.5 H (8.4-10.2) mg/dL AST 45 H (14-36) U/L ALT 43 H (4-34) U/L Urine Appearance Cloudy H (Clear) Urine Glucose (UA) 3+ H (Negative) Ur Leukocyte Esterase Moderate H (Negative) Urine WBC 14 H (0-5) /hpf U Tricyclic Antidepress Detected H (NotDetected) U Marijuana (THC) Screen Detected H (NotDetected) 10/18/19 10/18/19 10/18/19 Range/Units 03:52 04:59 09:01 WBC (3.8-10.6) k/uL Hct (34.0-46.0) % Plt Count (150-450) k/uL Sodium (137-145) mmol/L Carbon Dioxide (22-30) mmol/L BUN (7-17) mg/dL Creatinine (0.52-1.04) mg/dL Glucose (74-99) mg/dL POC Glucose (mg/dL) 235 H 244 H 192 H (75-99) mg/dL Calcium (8.4-10.2) mg/dL AST (14-36) U/L ALT (4-34) U/L Urine Appearance (Clear) Urine Glucose (UA) (Negative) Ur Leukocyte Esterase (Negative) Urine WBC (0-5) /hpf U Tricyclic Antidepress (NotDetected) U Marijuana (THC) Screen (NotDetected) 10/18/19 10/18/19 10/18/19 Range/Units 15:13 19:44 22:44 WBC (3.8-10.6) k/uL Hct (34.0-46.0) % Plt Count (150-450) k/uL Sodium (137-145) mmol/L Carbon Dioxide (22-30) mmol/L BUN (7-17) mg/dL Creatinine (0.52-1.04) mg/dL Glucose (74-99) mg/dL POC Glucose (mg/dL) 249 H 313 H 276 H (75-99) mg/dL Calcium (8.4-10.2) mg/dL AST (14-36) U/L ALT (4-34) U/L Urine Appearance (Clear) Urine Glucose (UA) (Negative) Ur Leukocyte Esterase (Negative) Urine WBC (0-5) /hpf U Tricyclic Antidepress (NotDetected) U Marijuana (THC) Screen (NotDetected) Microbiology - Last 24 Hours (Table) 10/18/19 02:30 Urine Culture - Preliminary Urine,Clean Catch Assessment and Plan Plan: Type II DM -Continue with home insulin doses of Levemir 25 units daily at bedtime and 35 units a.m. -Insulin sliding scale and blood glucose monitoring -Hold oral hypoglycemics Hypertension, hyperlipidemia -Continue with home meds Thank you for allowing us to participate in the care of this patient. We will follow peripherally. Do not hesitate to contact us with questions. Someone can be reached from the [facility] hospitalist group at all hours of the day at [phone].
[2019-10-19] MEDS: INSULIN ASPART (NovoLOG) 100 UNIT/ML VIAL SQ SCH ×7 (03:00→21:16)
[2019-10-19 07:56] LABS: Glucose,Whole Blood 468 mg/dL (75-99)
[2019-10-19 08:00] LABS: Glucose,Whole Blood 454 mg/dL (75-99)
[2019-10-19] MEDS ORDERED: INSULIN ASPART (NovoLOG) 100 UNIT/ML VIAL SQ ONE (09:00)
[2019-10-19] MEDS: INSULIN DETEMIR (LEVEMIR) 100 UNIT/ML SYR SQ SCH ×2 (09:02→21:17)
[2019-10-19] MEDS: ASPIRIN 81 MG PO SCH (09:03)
[2019-10-19] MEDS: GABAPENTIN 400 MG CAP PO SCH ×3 (09:03→21:18)
[2019-10-19] MEDS: carvediloL 6.25 MG TAB PO SCH ×2 (09:03→16:31)
[2019-10-19] MEDS: ISOSORBIDE MONONITRATE ER 30 MG TAB.ER.24H PO SCH ×2 (09:04→09:19)
[2019-10-19] MEDS: metFORMIN 500 MG TAB PO SCH ×3 (09:04→21:18)
[2019-10-19] MEDS: lisinopriL 10 MG TAB PO SCH (09:04)
[2019-10-19] MEDS: glipiZIDE 10 MG TAB PO SCH ×2 (09:04→21:16)
[2019-10-19] MEDS: PANTOPRAZOLE 40 MG TABLET PO SCH (09:05)
[2019-10-19 09:07] LABS: Glucose,Whole Blood 453 mg/dL (75-99)
[2019-10-19 10:07] LABS: Basophils # (A) 0.1 k/uL (0-0.2); Basophils % (A) 1 %; Eosinophils # (A) 0.4 k/uL (0-0.7); Eosinophils % (A) 5 %; HCT 44.7 % (34.0-46.0); HGB 14.2 gm/dL (11.4-16.0); Lymphocytes # (A) 2.8 k/uL (1.0-4.8); Lymphocytes % (A) 37 %; MCH 30.7 pg (25.0-35.0); MCHC 31.8 g/dL (31.0-37.0); MCV 96.8 fL (80.0-100.0); Mean Platelet Volume 7.2; Monocytes # (A) 0.5 k/uL (0-1.0); Monocytes % (A) 6 %; Neutrophils # (A) 3.7 k/uL (1.3-7.7); Neutrophils % (A) 49 %; Platelet Count 397 k/uL (150-450); RBC 4.62 m/uL (3.80-5.40); RDW 12.4 % (11.5-15.5); WBC 7.6 k/uL (3.8-10.6)
[2019-10-19 10:11] LABS: Albumin 4.3 g/dL (3.5-5.0); Calcium 10.1 mg/dL (8.4-10.2); Potassium 5.3 mmol/L (3.5-5.1); Total Bilirubin 0.4 mg/dL (0.2-1.3); Total Protein 6.7 g/dL (6.3-8.2)
[2019-10-19 11:57] LABS: Glucose,Whole Blood 146 mg/dL (75-99)
[2019-10-19 12:36] LABS: Glucose,Whole Blood 92 mg/dL (75-99)
[2019-10-19] MEDS: LORazepam 1 MG TAB PO PRN (12:50)
[2019-10-19 14:18] LABS: Glucose,Whole Blood 154 mg/dL (75-99)
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
[2019-10-19 17:40] LABS: Glucose,Whole Blood 115 mg/dL (75-99)
[2019-10-19 18:45] LABS: Hemoglobin A1C 11.1 % (4.0-6.0)
[2019-10-19 19:55] LABS: Glucose,Whole Blood 210 mg/dL (75-99)
[2019-10-19] MEDS: ATORVASTATIN 10 MG TAB PO SCH (21:15)
[2019-10-19] MEDS: QUEtiapine 200 MG TAB PO SCH (21:18)
[2019-10-19] MEDS: lamoTRIgine 100 MG TAB PO SCH (21:18)
[2019-10-20] MEDS: LORazepam 1 MG TAB PO PRN ×2 (00:33→22:52)
[2019-10-20 01:57] VITALS: TEMP 98.7
[2019-10-20] MEDS: INSULIN DETEMIR (LEVEMIR) 100 UNIT/ML SYR SQ SCH ×2 (08:02→21:10)
[2019-10-20] MEDS: INSULIN ASPART (NovoLOG) 100 UNIT/ML VIAL SQ SCH ×7 (08:03→21:10)
[2019-10-20] MEDS: carvediloL 6.25 MG TAB PO SCH ×2 (08:03→16:59)
[2019-10-20 08:04] LABS: Glucose,Whole Blood 185 mg/dL (75-99)
[2019-10-20] MEDS: GABAPENTIN 400 MG CAP PO SCH ×3 (08:06→19:59)
[2019-10-20] MEDS: ASPIRIN 81 MG PO SCH (08:06)
[2019-10-20] MEDS: ISOSORBIDE MONONITRATE ER 30 MG TAB.ER.24H PO SCH (08:07)
[2019-10-20] MEDS: lisinopriL 10 MG TAB PO SCH (08:07)
[2019-10-20] MEDS: PANTOPRAZOLE 40 MG TABLET PO SCH (08:08)
[2019-10-20] MEDS: metFORMIN 500 MG TAB PO SCH ×2 (08:08→19:57)
[2019-10-20 08:33] VITALS: RESP 16
[2019-10-20 08:59] LABS: Basophils # (A) 0.1 k/uL (0-0.2); Basophils % (A) 1 %; Eosinophils # (A) 0.3 k/uL (0-0.7); Eosinophils % (A) 4 %; HCT 43.3 % (34.0-46.0); Lymphocytes # (A) 3.3 k/uL (1.0-4.8); Lymphocytes % (A) 40 %; MCH 30.7 pg (25.0-35.0); MCHC 32.4 g/dL (31.0-37.0); Mean Platelet Volume 7.4; Monocytes # (A) 0.4 k/uL (0-1.0); Monocytes % (A) 5 %; Neutrophils % (A) 49 %; Platelet Count 423 k/uL (150-450); RBC 4.56 m/uL (3.80-5.40); RDW 12.3 % (11.5-15.5); WBC 8.2 k/uL (3.8-10.6)
[2019-10-20] MEDS ORDERED: ERGOCALCIFEROL 50,000 UNIT CAP PO SCH (09:00)
[2019-10-20 09:14] LABS: Albumin 4.3 g/dL (3.5-5.0); Calcium 10.3 mg/dL (8.4-10.2); Potassium 5.1 mmol/L (3.5-5.1); Total Bilirubin 0.4 mg/dL (0.2-1.3); Total Protein 6.7 g/dL (6.3-8.2)
--- NOTE | 2019-10-20 09:32 | P.PN ---
Subjective Progress Note Date: 10/20/19 Principal diagnosis: Bipolar 1 depressed Subjective patient says that she slept well is going to groups denies any suicidality or homicidality talks fondly about her cats in her apartment Objective: Patient self-care is adequate good eye contact pleasant smile gait and station normal psychomotor activity is normal no evidence of psychosis she denies suicidality or homicidality Groups the patient has been attending she did not need much assistance was spontaneous speaking up with staff and patients reasonable focus Vital signs temperature is 98.7 heart rate 100 respiration 18 blood pressure 128/69 Labs: Hematology is fine general chemistry car shows her sugar running in the high 100 and GFR is elevated Patient slept about 4 hours last night Staff assessment: Patient appears calm oriented alert denying any suicidal or homicidal or psychotic symptoms taking good care of ADLs Assessment: Patient seems to be calming down tolerating her medicines still didn't sleep well she is good night's sleep tonight we'll look to discharge her tomorrow she does not seem to be agitated or suicidal Objective - Vital Signs Vital signs: Vital Signs Temp 98.7 F 10/20/19 00:33 Pulse 101 H 10/20/19 07:55 Resp 16 10/20/19 07:55 BP 106/67 10/20/19 07:55 Pulse Ox 96 10/19/19 09:00 - Labs CBC & Chem 7: 10/20/19 07:53 10/20/19 07:53 Labs: Abnormal Lab Results - Last 24 Hours (Table) 10/19/19 10/19/19 10/19/19 Range/Units 09:18 09:18 11:54 Sodium 135 L (137-145) mmol/L Potassium 5.3 H (3.5-5.1) mmol/L Chloride (98-107) mmol/L BUN 26 H (7-17) mg/dL Creatinine 1.09 H (0.52-1.04) mg/dL Glucose 448 H (74-99) mg/dL POC Glucose (mg/dL) 146 H (75-99) mg/dL Hemoglobin A1c 11.1 H (4.0-6.0) % Calcium (8.4-10.2) mg/dL ALT 37 H (4-34) U/L Triglycerides 233 H (<150) mg/dL HDL Cholesterol 35 L (40-60) mg/dL 10/19/19 10/19/19 10/19/19 Range/Units 14:14 17:39 19:54 Sodium (137-145) mmol/L Potassium (3.5-5.1) mmol/L Chloride (98-107) mmol/L BUN (7-17) mg/dL Creatinine (0.52-1.04) mg/dL Glucose (74-99) mg/dL POC Glucose (mg/dL) 154 H 115 H 210 H (75-99) mg/dL Hemoglobin A1c (4.0-6.0) % Calcium (8.4-10.2) mg/dL ALT (4-34) U/L Triglycerides (<150) mg/dL HDL Cholesterol (40-60) mg/dL 10/20/19 10/20/19 Range/Units 07:52 07:53 Sodium (137-145) mmol/L Potassium (3.5-5.1) mmol/L Chloride 108 H (98-107) mmol/L BUN 24 H (7-17) mg/dL Creatinine (0.52-1.04) mg/dL Glucose 165 H (74-99) mg/dL POC Glucose (mg/dL) 185 H (75-99) mg/dL Hemoglobin A1c (4.0-6.0) % Calcium 10.3 H (8.4-10.2) mg/dL ALT 36 H (4-34) U/L Triglycerides (<150) mg/dL HDL Cholesterol (40-60) mg/dL Microbiology - Last 24 Hours (Table) 10/18/19 02:30 Urine Culture - Final Urine,Clean Catch
[2019-10-20] MEDS: glipiZIDE 10 MG TAB PO SCH ×2 (09:37→19:55)
[2019-10-20 12:41] LABS: Glucose,Whole Blood 161 mg/dL (75-99)
[2019-10-20 12:45] VITALS: BMI 25.9
[2019-10-20 17:46] LABS: Glucose,Whole Blood 91 mg/dL (75-99)
[2019-10-20] MEDS: ATORVASTATIN 10 MG TAB PO SCH (19:55)
[2019-10-20] MEDS: QUEtiapine 200 MG TAB PO SCH (19:59)
[2019-10-20] MEDS: lamoTRIgine 100 MG TAB PO SCH (19:59)
[2019-10-20 20:15] LABS: Glucose,Whole Blood 254 mg/dL (75-99)
[2019-10-21 08:02] LABS: Glucose,Whole Blood 179 mg/dL (75-99)
[2019-10-21] MEDS: ISOSORBIDE MONONITRATE ER 30 MG TAB.ER.24H PO SCH (08:39)
[2019-10-21] MEDS: INSULIN ASPART (NovoLOG) 100 UNIT/ML VIAL SQ SCH ×4 (08:42→12:59)
[2019-10-21] MEDS: INSULIN DETEMIR (LEVEMIR) 100 UNIT/ML SYR SQ SCH (08:43)
[2019-10-21] MEDS: glipiZIDE 10 MG TAB PO SCH (08:43)
[2019-10-21] MEDS: carvediloL 6.25 MG TAB PO SCH (08:43)
[2019-10-21] MEDS: ASPIRIN 81 MG PO SCH (08:43)
[2019-10-21] MEDS: PANTOPRAZOLE 40 MG TABLET PO SCH (08:43)
[2019-10-21] MEDS: lisinopriL 10 MG TAB PO SCH (08:44)
[2019-10-21] MEDS: GABAPENTIN 400 MG CAP PO SCH (08:44)
[2019-10-21] MEDS: metFORMIN 500 MG TAB PO SCH (08:44)
[2019-10-21 08:49] VITALS: BP 137/69; PULSE 103
--- NOTE | 2019-10-21 09:41 | P.DS ---
Providers Date of admission: 10/18/19 21:20 Expected date of discharge: 10/21/19 Attending physician: Loren Rodriguez MD Consults: 10/18/19 21:33 Consult Physician Routine Consulting Provider: Jero Higgins Consult Reason/Comments: H&P and medical Do you want consulting provider notified?: Yes Primary care physician: [facility] Course: Patient was admitted to the psychiatric unit on 10/19/19 IDENTIFICATION DATA:The patient is a 69-year-old female with a PMH of hypertension, hyperlipidemia, and type II DM who was brought in due to disorganized thought process and features of depression. She was admitted to the mental health unit where she was seen and evaluated earlier today. The patient noted feeling somewhat better and denied any active complaints. She denied chest pain, shortness of breath, fever, chills, nausea, vomiting. She reports taking insulin at home 25 units of Levemir at bedtime and 35 units in the morning. She also endorsed compliance with her remaining medications which are Seroquel 100 each evening and Lamictal 200 each evening. She was very clear that she had not forgotten the Lamictal for more than one day at a time I did warn her about the danger of restarting Lamictal if she had been off. According to her desire we kept her on Lamictal 200 each evening and Seroquel 200 The patient attended groups where she evidenced adequate hygiene talked well with patients and staff seemed a little concrete a little help but basically participated well. She slept well Staff assessment is that the patient was somewhat vague took care of her hygiene psychomotor activity normal oriented to person place time and circumstance consistently denied suicidality or homicidality hallucinations or delusions and did not seem to be responding to voices could get a little irritable at times like when there is no food and she felt like she needed something because her sugar was low. Mental status exam: Patient is alert good eye contact responses fit the questions and are logical. Psychomotor activity is normal speech is normal gait and station are normal self-care is adequate response times normal denies suicidal or homicidal thought. She has follow-up arranged for counseling and medications I think that she is safe for discharge Assessment: The patient doesn't have a lot of insight into what was going on that got her in the hospital but she has a pretty decent plan for after discharge she is going to call the [facility] she has attended and get rides and get involved with the ladies there and she has already contacted her counselor and set up appointments and is committed to taking her medication so think the prognosis is fair Health Concerns: The patient has a lot of chronic issues such as CAD diabetes mellitus GERD hyperlipidemia hypertension and liver disease however she did not have any acute difficulties while in the hospital Pertinent Studies: She did have basic labs especially keeping track of her blood sugar and she was running along at about 254 max and 91 low and bouncing in between that she has some fragile control of her diabetes. She also hematology was fine general chemistry showed BUN a little high and chloride a little high and not thought to be acute problems Vital signs temperature is 98.7 heart rate 100 Blood Pressure 128/69 She Does Have Low Troubles Oxygenation Running) around 90 but sometimes goes as low as 76 Procedures: None Plan - Discharge Summary Discharge Rx Participant: No New Discharge Prescriptions: New lamoTRIgine [LaMICtal] 200 mg PO HS 30 Days #60 tab Insulin Detemir (Levemir) [Levemir] 25 unit SQ HS syr INSULIN ASPART (NovoLOG) [NovoLOG (formulary)] 3 unit SQ AC-TID vial INSULIN ASPART (NovoLOG) [NovoLOG (formulary)] 0 unit SQ ACHS vial Pantoprazole [Protonix] 40 mg PO DAILY #0 tablet. QUEtiapine [SEROquel] 200 mg PO HS 30 Days #30 tab Continue Isosorbide Mononitrate ER [Imdur] 30 mg PO QAM metFORMIN HCL 1,000 mg PO BID lisinopriL 30 mg PO DAILY Aspirin EC [Ecotrin Low Dose] 81 mg PO DAILY Atorvastatin [Lipitor] 10 mg PO HS Carvedilol [Coreg] 6.25 mg PO BID Ergocalciferol [Vitamin D2 (DRISDOL)] 50,000 unit PO Q7D glipiZIDE [Glucotrol] 10 mg PO BID Insulin Glargine,Hum.rec.anlog [Lantus Solostar] 55 unit SQ HS Omeprazole [PriLOSEC] 20 mg PO DAILY Gabapentin 800 mg PO TID Discontinued lamoTRIgine [LaMICtal] 200 mg PO HS Ibuprofen [Motrin] 800 mg PO Q8H PRN PRN Reason: Pain QUEtiapine FUMARATE 200 mg PO DAILY Discharge Medication List Isosorbide Mononitrate ER [Imdur] 30 mg PO QAM 09/30/17 [History] metFORMIN HCL 1,000 mg PO BID 09/30/17 [History] lisinopriL 30 mg PO DAILY 02/12/18 [History] Aspirin EC [Ecotrin Low Dose] 81 mg PO DAILY 10/18/19 [History] Atorvastatin [Lipitor] 10 mg PO HS 10/18/19 [History] Carvedilol [Coreg] 6.25 mg PO BID 10/18/19 [History] Ergocalciferol [Vitamin D2 (DRISDOL)] 50,000 unit PO Q7D 10/18/19 [History] Gabapentin 800 mg PO TID 10/18/19 [History] Insulin Glargine,Hum.rec.anlog [Lantus Solostar] 55 unit SQ HS 10/18/19 [History] Omeprazole [PriLOSEC] 20 mg PO DAILY 10/18/19 [History] glipiZIDE [Glucotrol] 10 mg PO BID 10/18/19 [History] INSULIN ASPART (NovoLOG) [NovoLOG (formulary)] 0 unit SQ ACHS vial 10/21/19 [Rx] INSULIN ASPART (NovoLOG) [NovoLOG (formulary)] 3 unit SQ AC-TID vial 10/21/19 [Rx] Insulin Detemir (Levemir) [Levemir] 25 unit SQ HS syr 10/21/19 [Rx] Pantoprazole [Protonix] 40 mg PO DAILY #0 tablet. 10/21/19 [Rx] QUEtiapine [SEROquel] 200 mg PO HS 30 Days #30 tab 10/21/19 [Rx] lamoTRIgine [LaMICtal] 200 mg PO HS 30 Days #60 tab 10/21/19 [Rx] Follow up Appointment(s)/Referral(s): [facility] [Outside] - 10/21/19 3:00 pm (Reinaldo Serrano DO [Primary Care Provider] - 1-2 days Activity/Diet/Wound Care/Special Instructions: Activity and diet as tolerated. Avoid the use of street drugs and alcohol. Take all medications as prescribed. When you are in need of refills on your medications please contact your medical provider and/or outpatient psychiatrist to have this done. Please go to scheduled outpatient appointment for aftercare treatment. If symptoms return or become worse, call the crisis line at and/or go to the nearest emergency room for evaluation.
[2019-10-21 12:50] LABS: Glucose,Whole Blood 93 mg/dL (75-99)
== END 2019-10-21 13:04 | disposition home or self-care (01) | DRG 885 ==
LOC: EC 01:15 → 3MHU 21:20
PROVIDERS: ADMIT Psychiatry & Neurology Psychiatry; ATTEND Psychiatry & Neurology Psychiatry
DX: F31.9 Bipolar disorder, unspecified (principal); R45.851 Suicidal ideations; E78.5 Hyperlipidemia, unspecified; E11.42 Type 2 diabetes mellitus with diabetic polyneuropathy; K21.9 Gastro-esophageal reflux disease without esophagitis; I25.10 Atherosclerotic heart disease of native coronary artery without angina pectoris; I10 Essential (primary) hypertension; F43.10 Post-traumatic stress disorder, unspecified; F17.210 Nicotine dependence, cigarettes, uncomplicated; K76.9 Liver disease, unspecified; Z62.810 Personal history of physical and sexual abuse in childhood; Z79.899 Other long term (current) drug therapy; Z79.82 Long term (current) use of aspirin; Z79.4 Long term (current) use of insulin; Z88.7 Allergy status to serum and vaccine; Z88.8 Allergy status to other drugs, medicaments and biological substances; Z90.710 Acquired absence of both cervix and uterus; Z87.440 Personal history of urinary (tract) infections; Z83.1 Family history of other infectious and parasitic diseases; Z90.49 Acquired absence of other specified parts of digestive tract; Z90.89 Acquired absence of other organs; Z89.411 Acquired absence of right great toe; Z82.49 Family history of ischemic heart disease and other diseases of the circulatory system; Z83.3 Family history of diabetes mellitus; Z82.3 Family history of stroke; Z80.0 Family history of malignant neoplasm of digestive organs; Z84.1 Family history of disorders of kidney and ureter; Z83.6 Family history of other diseases of the respiratory system; Z91.14 Patient's other noncompliance with medication regimen; Z90.721 Acquired absence of ovaries, unilateral; Z86.19 Personal history of other infectious and parasitic diseases
CPT/HCPCS: 36415; 80053; 80061; 80306; 80320; 80329; 81001; 82075; 83036; 83520; 84443; 84484; 85025; 87086; 99285

== ENCOUNTER 2019-10-27 01:31 | Emergency (ER) | payer MEDICARE ==
[2019-10-27] MEDS ORDERED: QUEtiapine 200 MG TAB PO STA (02:54)
[2019-10-27] MEDS ORDERED: ZIPRASIDONE 20 MG CAP PO STA (04:00)
[2019-10-27] MEDS ORDERED: lamoTRIgine 100 MG TAB PO STA (04:00)
[2019-10-27] MEDS ORDERED: GABAPENTIN 400 MG CAP PO STA (04:00)
[2019-10-27] MEDS ORDERED: GABAPENTIN 400 MG CAP ONE (04:54)
[2019-10-27] MEDS ORDERED: lamoTRIgine 100 MG TAB ONE (04:54)
[2019-10-27] MEDS ORDERED: QUEtiapine 200 MG TAB ONE (04:54)
[2019-10-27] MEDS ORDERED: ZIPRASIDONE 20 MG CAP ONE (04:54)
[2019-10-27 06:03] LABS: Calcium 10.3 mg/dL (8.4-10.2)
[2019-10-27 06:04] LABS: Appearance,Urine Cloudy (Clear); Bacteria,Urine Occasional /hpf; Bilirubin,Urine Negative (Negative); Blood,Urine Negative (Negative); Color,Urine Light Yellow; Glucose,Urine (UA) Negative (Negative); Ketones,Urine Negative (Negative); Leukocyte Esterase,Urine Large (Negative); Mucus,Urine Rare /hpf; Nitrite,Urine Negative (Negative); Protein,Urine Negative (Negative); RBC,Urine 12 /hpf (0-5); Specific Gravity,Urine 1.004 (1.001-1.035); Squamous Epithelial Cell,Urine 11 /hpf (0-4); Urobilinogen,Urine <2.0 mg/dL (<2.0); WBC,Urine 17 /hpf (0-5)
[2019-10-27 06:07] LABS: Amphetamine Screen,Urine Not Detected (NotDetected); Barbiturate Screen,Urine Not Detected (NotDetected); Benzodiazepines Screen,Urine Not Detected (NotDetected); Cocaine Screen,Urine Not Detected (NotDetected); Methadone Screen, Urine Not Detected (NotDetected); Opiate Screen,Urine Not Detected (NotDetected); Oxycodone Screen, Urine Not Detected (NotDetected); Phencyclidine Screen,Urine Not Detected (NotDetected); Tricyclic Antidepressant,Urine Detected (NotDetected); Urn Cannabinoid Scrn Not Detected (NotDetected)
[2019-10-27 06:23] LABS: Basophils # (A) 0.1 k/uL (0-0.2); Basophils % (A) 1 %; Eosinophils # (A) 0.3 k/uL (0-0.7); Eosinophils % (A) 3 %; HCT 43.8 % (34.0-46.0); HGB 14.3 gm/dL (11.4-16.0); Lymphocytes # (A) 4.9 k/uL (1.0-4.8); Lymphocytes % (A) 38 %; MCH 30.3 pg (25.0-35.0); MCHC 32.6 g/dL (31.0-37.0); MCV 93.1 fL (80.0-100.0); Mean Platelet Volume 6.8; Monocytes # (A) 0.6 k/uL (0-1.0); Monocytes % (A) 5 %; Neutrophils # (A) 6.7 k/uL (1.3-7.7); Neutrophils % (A) 52 %; Platelet Count 395 k/uL (150-450); RBC 4.71 m/uL (3.80-5.40); RDW 12.2 % (11.5-15.5); WBC 12.9 k/uL (3.8-10.6)
[2019-10-27] MEDS ORDERED: INSULIN ASPART (NovoLOG) 100 UNIT/ML VIAL SQ ONE (08:03)
[2019-10-27 08:08] LABS: Glucose,Whole Blood 324 mg/dL (75-99)
[2019-10-27] MEDS ORDERED: LORazepam 2 MG/ML INJ IV STA (09:20)
[2019-10-27] MEDS ORDERED: LORazepam 1 MG TAB PO STA (09:26)
[2019-10-27 09:29] LABS: Glucose,Whole Blood 208 mg/dL (75-99)
[2019-10-27 17:35] VITALS: BP 147/82; PULSE 98; RESP 18; TEMP 98.3
--- NOTE | 2019-12-08 06:53 | ED ---
Psych HPI - General Chief Complaint: Psychiatric Symptoms Stated Complaint: mental health Time Seen by Provider: 10/27/19 01:41 Source: patient, EMS Mode of arrival: EMS - History of Present Illness Initial Comments: This dictation is a repeat dictation of the original downtime report that has apparently been lost in the downtime. Patient is a 69-year-old woman who had called EMS tonight a number of times, mainly with concern about how her blood pressure was. She also reportedly had complained of which she felt was a cyst located on the gingiva mouth. History is limited as the patient is appearing to be somewhat disorganized thought processes. With further questioning the patient states she has been off her medications and she has also had thoughts of lashing out at this other residents of her apartment. Patient acknowledges auditory hallucinations MD Complaint: other -: unknown Associated Psychiatric Symptoms: auditory hallucinations, delusions History of same: Yes Quality: getting worse Improves With: none Worsens With: none - Related Data Home Medications Medication Instructions Recorded Confirmed Ergocalciferol [Vitamin D2 50,000 unit PO Q7D 10/18/19 12/02/19 (DRISDOL)] Previous Rx's Medication Instructions Recorded Alogliptin Benzoate [Alogliptin] 25 mg PO DAILY 30 Days tab 12/07/19 Aspirin EC [Ecotrin Low Dose] 81 mg PO DAILY 30 Days tab 12/07/19 Atorvastatin [Lipitor] 10 mg PO HS 30 Days tab 12/07/19 Carvedilol [Coreg] 6.25 mg PO BID 30 Days tab 12/07/19 Gabapentin 800 mg PO TID 30 Days tab 12/07/19 Ibuprofen [Motrin] 800 mg PO TID PRN 30 Days tab 12/07/19 Insulin Glargine [Lantus] 55 unit SQ DAILY 30 Days vial 12/07/19 Isosorbide Mononitrate ER [Imdur] 30 mg PO DAILY 30 Days tab 12/07/19 Omeprazole [PriLOSEC] 20 mg PO DAILY 30 Days cap 12/07/19 QUEtiapine [SEROquel] 50 mg PO HS 30 Days tab 12/07/19 busPIRone HCl [Buspar] 10 mg PO TID PRN 30 Days tab 12/07/19 glipiZIDE [Glucotrol] 10 mg PO BID 30 Days tab 10/21/20 lamoTRIgine [LaMICtal] 100 mg PO DAILY 30 Days tab 12/07/19 lisinopriL 30 mg PO DAILY 30 Days tab 12/07/19 metFORMIN HCL 1,000 mg PO BID 30 Days tab 12/07/19 Allergies Allergy/AdvReac Type Severity Reaction Status Date / Time lithium AdvReac severe Verified 12/03/19 01:49 tremors tetanus and diphtheria AdvReac chest Verified 12/03/19 01:49 toxoids pain,high [tetanus & diphtheria blood toxoids] pressure Review of Systems ROS Statement: Those systems with pertinent positive or pertinent negative responses have been documented in the HPI. ROS Other: All systems not noted in ROS Statement are negative. Limitations: ROS unobtainable due to patients medical condition Constitutional: Denies: fever Respiratory: Denies: cough, dyspnea Cardiovascular: Denies: chest pain Gastrointestinal: Denies: abdominal pain, vomiting Neurological: Denies: headache Psychiatric: Reports: anxiety, auditory hallucinations, homicidal thoughts. Denies: depression, suicidal thoughts Past Medical History Past Medical History: Coronary Artery Disease (CAD), Diabetes Mellitus, GERD/Reflux, Hyperlipidemia, Hypertension, Liver Disease Additional Past Medical History / Comment(s): states "I have a purple bump on the inside of my lip",NIDDM type II, bilateral peripheral neuropathy bilateral feet, 2014 diabetic ulcer R great toe/foot with amputation, 2017 pt states she had osteomylitis R 4th toe, viral neningitis/encephalopathy, hepatitis C tx and cured, PCOS, UTIs History of Any Multi-Drug Resistant Organisms: C-DIFF Date of last positivie culture/infection: 01/05/15 MDRO Source:: Stool Past Surgical History: Cholecystectomy, Hysterectomy, Orthopedic Surgery, Tonsil lectomy Additional Past Surgical History / Comment(s): Amputation right great toe/part of foot, R knee surgery for large cyst/cartilage removed, 2005 cardiac cath showed 1 vessel disease/treated medically, hysterectomy and left a piece of the R ovary, EGD/colonoscopy. Past Anesthesia/Blood Transfusion Reactions: No Reported Reaction Additional Past Anesthesia/Blood Transfusion Reaction / Comment(s): No previous blood transfusions. Past Psychological History: Anxiety, Bipolar, PTSD Smoking Status: Current every day smoker Past Alcohol Use History: None Reported Past Drug Use History: IV Drug Use - Past Family History Father Family Medical History: Coronary Artery Disease (CAD), Myocardial Infarction ([place]) Additional Family Medical History / Comment(s): Father at age 82 from a massive myocardial infarction. Mother Family Medical History: CVA/TIA Additional Family Medical History / Comment(s): Mother at age 76 from a CVA. Mother had TB Brother(s) Family Medical History: Cancer Additional Family Medical History / Comment(s): Patient has 3 brothers. One brother has from pancreatic cancer. Another brother has stage IV kidney failure and an aortic aneurysm that needs surgery. General Exam Limitations: no limitations General appearance: alert, in no apparent distress Head exam: Present: atraumatic Eye exam: Present: normal appearance. Absent: scleral icterus, conjunctival injection Respiratory exam: Present: normal lung sounds bilaterally. Absent: respiratory distress, wheezes, rales, rhonchi, stridor Cardiovascular Exam: Present: regular rate, normal rhythm, normal heart sounds. Absent: systolic murmur, diastolic murmur, rubs, gallop GI/Abdominal exam: Present: soft. Absent: distended, tenderness, guarding, rebound Extremities exam: Present: normal inspection, normal capillary refill Neurological exam: Present: alert Psychiatric exam: Present: agitated, manic, homicidal ideation. Absent: depressed, flat affect, suicidal ideation Skin exam: Present: warm, dry, intact, normal color. Absent: rash Course Vital Signs 10/27/19 10/27/19 10/27/19 01:34 02:44 08:12 Temperature 98.1 F 98.4 F Pulse Rate 106 H 100 Respiratory 16 18 Rate Blood Pressure 179/108 167/94 149/87 O2 Sat by Pulse 97 98 Oximetry 10/27/19 10/27/19 09:55 17:30 Temperature 98.5 F 98.3 F Pulse Rate 96 98 Respiratory 16 18 Rate Blood Pressure 160/90 147/82 O2 Sat by Pulse 98 99 Oximetry Medical Decision Making - Lab Data Result diagrams: 10/27/19 05:34 10/27/19 05:34 Lab Results 10/27/19 10/27/19 10/27/19 Range/Units 05:34 05:34 05:34 WBC 12.9 H (3.8-10.6) k/uL RBC 4.71 (3.80-5.40) m/uL Hgb 14.3 (11.4-16.0) gm/dL Hct 43.8 (34.0-46.0) % MCV 93.1 (80.0-100.0) fL MCH 30.3 (25.0-35.0) pg MCHC 32.6 (31.0-37.0) g/dL RDW 12.2 (11.5-15.5) % Plt Count 395 (150-450) k/uL Neutrophils % 52 % Lymphocytes % 38 % Monocytes % 5 % Eosinophils % 3 % Basophils % 1 % Neutrophils # 6.7 (1.3-7.7) k/uL Lymphocytes # 4.9 H (1.0-4.8) k/uL Monocytes # 0.6 (0-1.0) k/uL Eosinophils # 0.3 (0-0.7) k/uL Basophils # 0.1 (0-0.2) k/uL Sodium 134 L (137-145) mmol/L Potassium 4.0 (3.5-5.1) mmol/L Chloride 98 (98-107) mmol/L Carbon Dioxide 25 (22-30) mmol/L Anion Gap 11 mmol/L BUN 19 H (7-17) mg/dL Creatinine 2.88 H (0.52-1.04) mg/dL Est GFR (CKD-EPI)AfAm 19 (>60 ml/min/1.73 sqM) Est GFR (CKD-EPI)NonAf 16 (>60 ml/min/1.73 sqM) Glucose 214 H (74-99) mg/dL POC Glucose (mg/dL) (75-99) mg/dL POC Glu Service Planner ID Calcium 10.3 H (8.4-10.2) mg/dL Urine Color Light Yellow Urine Appearance Cloudy H (Clear) Urine pH 5.0 (5.0-8.0) Ur Specific [place] 1.004 (1.001-1.035) Urine Protein Negative (Negative) Urine Glucose (UA) Negative (Negative) Urine Ketones Negative (Negative) Urine Blood Negative (Negative) Urine Nitrite Negative (Negative) Urine Bilirubin Negative (Negative) Urine Urobilinogen <2.0 (<2.0) mg/dL Ur Leukocyte Esterase Large H (Negative) Urine RBC 12 H (0-5) /hpf Urine WBC 17 H (0-5) /hpf Ur Squamous Epith Cells 11 H (0-4) /hpf Urine Bacteria Occasional H (None) /hpf Urine Mucus Rare H (None) /hpf Urine Opiates Screen Not Detected (NotDetected) Ur Oxycodone Screen Not Detected (NotDetected) Urine Methadone Screen Not Detected (NotDetected) Ur Propoxyphene Screen Not Detected (NotDetected) Ur Barbiturates Screen Not Detected (NotDetected) U Tricyclic Antidepress Detected H (NotDetected) Ur Phencyclidine Scrn Not Detected (NotDetected) Ur Amphetamines Screen Not Detected (NotDetected) U Methamphetamines Scrn Not Detected (NotDetected) U Benzodiazepines Scrn Not Detected (NotDetected) Urine Cocaine Screen Not Detected (NotDetected) U Marijuana (THC) Screen Not Detected (NotDetected) 10/27/19 10/27/19 Range/Units 07:59 09:28 WBC (3.8-10.6) k/uL RBC (3.80-5.40) m/uL Hgb (11.4-16.0) gm/dL Hct (34.0-46.0) % MCV (80.0-100.0) fL MCH (25.0-35.0) pg MCHC (31.0-37.0) g/dL RDW (11.5-15.5) % Plt Count (150-450) k/uL Neutrophils % % Lymphocytes % % Monocytes % % Eosinophils % % Basophils % % Neutrophils # (1.3-7.7) k/uL Lymphocytes # (1.0-4.8) k/uL Monocytes # (0-1.0) k/uL Eosinophils # (0-0.7) k/uL Basophils # (0-0.2) k/uL Sodium (137-145) mmol/L Potassium (3.5-5.1) mmol/L Chloride (98-107) mmol/L Carbon Dioxide (22-30) mmol/L Anion Gap mmol/L BUN (7-17) mg/dL Creatinine (0.52-1.04) mg/dL Est GFR (CKD-EPI)AfAm (>60 ml/min/1.73 sqM) Est GFR (CKD-EPI)NonAf (>60 ml/min/1.73 sqM) Glucose (74-99) mg/dL POC Glucose (mg/dL) 324 H 208 H (75-99) mg/dL POC Glu Service Planner Sb Anguiano Danielle Calcium (8.4-10.2) mg/dL Urine Color Urine Appearance (Clear) Urine pH (5.0-8.0) Ur Specific [place] (1.001-1.035) Urine Protein (Negative) Urine Glucose (UA) (Negative) Urine Ketones (Negative) Urine Blood (Negative) Urine Nitrite (Negative) Urine Bilirubin (Negative) Urine Urobilinogen (<2.0) mg/dL Ur Leukocyte Esterase (Negative) Urine RBC (0-5) /hpf Urine WBC (0-5) /hpf Ur Squamous Epith Cells (0-4) /hpf Urine Bacteria (None) /hpf Urine Mucus (None) /hpf Urine Opiates Screen (NotDetected) Ur Oxycodone Screen (NotDetected) Urine Methadone Screen (NotDetected) Ur Propoxyphene Screen (NotDetected) Ur Barbiturates Screen (NotDetected) U Tricyclic Antidepress (NotDetected) Ur Phencyclidine Scrn (NotDetected) Ur Amphetamines Screen (NotDetected) U Methamphetamines Scrn (NotDetected) U Benzodiazepines Scrn (NotDetected) Urine Cocaine Screen (NotDetected) U Marijuana (THC) Screen (NotDetected) Disposition Clinical Impression: Acute psychosis Disposition: TRANSFER TO PSYCH HOSP/UNIT Condition: Fair Referrals: Reinaldo Randall DO [Primary Care Provider] - 1-2 days
== END 2019-10-27 17:35 ==
LOC: EC 01:31
DX: F23 Brief psychotic disorder (principal); I25.10 Atherosclerotic heart disease of native coronary artery without angina pectoris; E11.42 Type 2 diabetes mellitus with diabetic polyneuropathy; I10 Essential (primary) hypertension; E78.5 Hyperlipidemia, unspecified; F17.200 Nicotine dependence, unspecified, uncomplicated; Z91.048 Other nonmedicinal substance allergy status; Z88.7 Allergy status to serum and vaccine; Z90.721 Acquired absence of ovaries, unilateral; Z90.710 Acquired absence of both cervix and uterus
CPT/HCPCS: 36415; 80048; 80306; 81001; 82075; 85025; 99285

== ENCOUNTER 2019-12-02 18:02 | Inpatient (IN) | payer MEDICARE ==
--- NOTE | 2019-12-02 18:41 | ED ---
General Adult HPI - General Chief complaint: Psychiatric Symptoms Stated complaint: Mental Health Time Seen by Provider: 12/02/19 18:13 Source: patient, police, RN notes reviewed, old records reviewed Mode of arrival: wheelchair Limitations: no limitations - History of Present Illness Initial comments: 69-year-old female presents under court ordered psychiatric evaluation. Apparently the patient had imaging homicidal statements and has been off of her medication. She states she has been off her medication for approximately 2 days. She states that she sometimes becomes frustrated with the people that live in her apartment complex. She was brought in by [facility] department. No physical complaints. Denies suicidal ideation. - Related Data Home Medications Medication Instructions Recorded Confirmed Isosorbide Mononitrate ER [Imdur] 30 mg PO DAILY 09/30/17 12/02/19 metFORMIN HCL 1,000 mg PO BID 09/30/17 12/02/19 lisinopriL 30 mg PO DAILY 02/12/18 12/02/19 Aspirin EC [Ecotrin Low Dose] 81 mg PO DAILY 10/18/19 12/02/19 Atorvastatin [Lipitor] 10 mg PO HS 10/18/19 12/02/19 Carvedilol [Coreg] 6.25 mg PO BID 10/18/19 12/02/19 Ergocalciferol [Vitamin D2 50,000 unit PO Q7D 10/18/19 12/02/19 (DRISDOL)] Gabapentin 800 mg PO TID 10/18/19 12/02/19 Omeprazole [PriLOSEC] 20 mg PO DAILY 10/18/19 12/02/19 glipiZIDE [Glucotrol] 10 mg PO BID 10/18/19 12/02/19 Alogliptin Benzoate [Alogliptin] 25 mg PO DAILY 12/02/19 12/02/19 INSULIN LISPRO (HumaLOG) [humaLOG] See Protocol SQ ACHS 12/02/19 12/02/19 Ibuprofen [Motrin] 800 mg PO TID PRN 12/02/19 12/02/19 Insulin Glargine [Lantus] 55 unit SQ DAILY 12/02/19 12/02/19 Paliperidone [Invega] 9 mg PO DAILY 12/02/19 12/02/19 QUEtiapine [SEROquel] 100 mg PO DAILY 12/02/19 12/02/19 busPIRone HCl [Buspar] 10 mg PO TID PRN 12/02/19 12/02/19 lamoTRIgine [LaMICtal] 100 mg PO DAILY 12/02/19 12/02/19 Previous Rx's Medication Instructions Recorded Pantoprazole [Protonix] 40 mg PO DAILY #0 tablet. 10/21/19 Allergies Allergy/AdvReac Type Severity Reaction Status Date / Time lithium AdvReac severe Verified 12/02/19 18:09 tremors tetanus and diphtheria AdvReac chest Verified 12/02/19 18:09 toxoids pain,high [tetanus & diphtheria blood toxoids] pressure Review of Systems ROS Statement: Those systems with pertinent positive or pertinent negative responses have been documented in the HPI. ROS Other: All systems not noted in ROS Statement are negative. Past Medical History Past Medical History: Coronary Artery Disease (CAD), Diabetes Mellitus, GERD/Reflux, Hyperlipidemia, Hypertension, Liver Disease Additional Past Medical History / Comment(s): states "I have a purple bump on the inside of my lip",NIDDM type II, bilateral peripheral neuropathy bilateral feet, 2014 diabetic ulcer R great toe/foot with amputation, 2017 pt states she had osteomylitis R 4th toe, viral neningitis/encephalopathy, hepatitis C tx and cured, PCOS, UTIs History of Any Multi-Drug Resistant Organisms: C-DIFF Date of last positivie culture/infection: 01/05/15 MDRO Source:: Stool Past Surgical History: Cholecystectomy, Hysterectomy, Orthopedic Surgery, Tonsillectomy Additional Past Surgical History / Comment(s): Amputation right great toe/part of foot, R knee surgery for large cyst/cartilage removed, 2005 cardiac cath showed 1 vessel disease/treated medically, hysterectomy and left a piece of the R ovary, EGD/colonoscopy. Past Anesthesia/Blood Transfusion Reactions: No Reported Reaction Additional Past Anesthesia/Blood Transfusion Reaction / Comment(s): No previous blood transfusions. Past Psychological History: Anxiety, Bipolar, PTSD Smoking Status: Current every day smoker Past Alcohol Use History: Abuse Past Drug Use History: Marijuana - Past Family History Father Family Medical History: Coronary Artery Disease (CAD), Myocardial Infarction ([place]) Additional Family Medical History / Comment(s): Father at age 82 from a massive myocardial infarction. Mother Family Medical History: CVA/TIA Additional Family Medical History / Comment(s): Mother at age 76 from a CVA. Mother had TB Brother(s) Family Medical History: Cancer Additional Family Medical History / Comment(s): Patient has 3 brothers. One brother has from pancreatic cancer. Another brother has stage IV kidney failure and an aortic aneurysm that needs surgery. General Exam Limitations: no limitations General appearance: alert, in no apparent distress Head exam: Present: atraumatic, normocephalic Eye exam: Present: normal appearance, PERRL ENT exam: Present: normal exam Neck exam: Present: normal inspection. Absent: tenderness, meningismus Respiratory exam: Present: normal lung sounds bilaterally. Absent: respiratory distress, wheezes Cardiovascular Exam: Present: regular rate, normal rhythm GI/Abdominal exam: Present: soft. Absent: distended, tenderness, guarding Extremities exam: Present: normal inspection, normal capillary refill. Absent: pedal edema Neurological exam: Present: alert, oriented X3 Psychiatric exam: Present: homicidal ideation. Absent: suicidal ideation Skin exam: Present: warm, dry, intact. Absent: cyanosis, diaphoretic Course Vital Signs 12/02/19 18:06 Temperature 98.0 F Pulse Rate 108 H Respiratory 20 Rate Blood Pressure 108/69 O2 Sat by Pulse 99 Oximetry - Reevaluation(s) Reevaluation #1: 12/02/19 18:41 Patient medically cleared for EPS evaluation Reevaluation #2: 12/02/19 19:39 I have completed a clinical certification on this patient. Disposition Clinical Impression: Bipolar II disorder, Homicidal ideations Disposition: ADMITTED IP TO THIS [facility] Condition: Stable Is patient prescribed a controlled substance at d/c from ED?: No Referrals: Reinaldo Randall DO [Primary Care Provider] - 1-2 days
[2019-12-02] MEDS ORDERED: MAGNESIUM HYDROXIDE 2,400 MG/10 ML CUP PO PRN (22:39)
[2019-12-03] MEDS ORDERED: ZIPRASIDONE 20 MG VIAL IM PRN
[2019-12-03] MEDS ORDERED: busPIRone HCl 10 MG TAB PO PRN
[2019-12-03] MEDS ORDERED: ACETAMINOPHEN TAB 325 MG TAB PO PRN
[2019-12-03 07:33] LABS: Basophils % (A) 1 %; Eosinophils # (A) 0.3 k/uL (0-0.7); Eosinophils % (A) 4 %; HCT 38.9 % (34.0-46.0); HGB 12.6 gm/dL (11.4-16.0); Lymphocytes # (A) 2.5 k/uL (1.0-4.8); Lymphocytes % (A) 30 %; MCH 31.3 pg (25.0-35.0); MCHC 32.3 g/dL (31.0-37.0); MCV 96.8 fL (80.0-100.0); Mean Platelet Volume 6.9; Monocytes # (A) 0.4 k/uL (0-1.0); Monocytes % (A) 4 %; Neutrophils % (A) 60 %; Platelet Count 339 k/uL (150-450); RBC 4.02 m/uL (3.80-5.40); RDW 13.3 % (11.5-15.5); WBC 8.3 k/uL (3.8-10.6)
[2019-12-03 07:44] LABS: Albumin 3.6 g/dL (3.5-5.0); Calcium 8.9 mg/dL (8.4-10.2); Potassium 3.8 mmol/L (3.5-5.1); Total Bilirubin 0.5 mg/dL (0.2-1.3); Total Protein 6.1 g/dL (6.3-8.2)
[2019-12-03] MEDS: GABAPENTIN 400 MG CAP PO SCH ×3 (08:06→21:39)
[2019-12-03] MEDS: lamoTRIgine 100 MG TAB PO SCH (08:06)
[2019-12-03] MEDS: carvediloL 6.25 MG TAB PO SCH ×2 (08:06→16:42)
[2019-12-03] MEDS: PANTOPRAZOLE 40 MG TABLET PO SCH (08:06)
[2019-12-03] MEDS: glipiZIDE 10 MG TAB PO SCH ×2 (08:07→21:39)
[2019-12-03] MEDS: ASPIRIN 81 MG PO SCH (08:07)
[2019-12-03] MEDS: ISOSORBIDE MONONITRATE ER 30 MG TAB.ER.24H PO SCH (08:09)
[2019-12-03 08:14] LABS: Glucose,Whole Blood 129 mg/dL (75-99)
[2019-12-03] MEDS ORDERED: LINAGLIPTIN 5 MG TABLET PO SCH (09:00)
[2019-12-03] MEDS ORDERED: metFORMIN 500 MG TAB PO SCH (09:00)
[2019-12-03] MEDS: INSULIN DETEMIR (LEVEMIR) 100 UNIT/ML SYR SQ SCH (09:12)
[2019-12-03 13:07] LABS: Glucose,Whole Blood 128 mg/dL (75-99)
[2019-12-03 14:20] LABS: Hemoglobin A1C 8.9 % (4.0-6.0)
[2019-12-03 17:55] LABS: Glucose,Whole Blood 115 mg/dL (75-99)
--- NOTE | 2019-12-03 18:19 | P.MDCNMH ---
History of Present Illness H&P Date: 12/03/19 69-year-old female with PMH of CAD, diabetes mellitus, hypertension presents the ED under court order psychiatric evaluation. She has been admitted to mental health unit for further observation and management. [facility] has been consulted for medical management of this patient. Patient reports bilateral knee pain has been ongoing for the past couple of weeks. Patient states that she had her right knee surgically repaired in the past. Patient reports falling 3 times landing on her knee on Thursday, Thursday and Thursday. She reports knee swelling and unstable gait. She has been using a walker to ambulate here. She denies any headache, lower extremity edema, nausea or vomiting, fever or chills, cough, chest, shortness breath, palpitations, changes in urination or bowel habits. No changes in appetite or weight. Review of vitals signs blood pressure 167/86. CBC is unremarkable. CMP shows chloride of 110, BUN of 18 and glucose 110. Liver panel shows triglyceride of 170, total cholesterol 172, LDL 108 and HDL 30. TSH is within normal limits. Review of Systems Pertinent positives and negatives as discussed in HPI, a complete review of systems was performed and all other systems are negative. Past Medical History Past Medical History: Coronary Artery Disease (CAD), Diabetes Mellitus, GERD/Reflux, Hyperlipidemia, Hypertension, Liver Disease Additional Past Medical History / Comment(s): states "I have a purple bump on the inside of my lip",NIDDM type II, bilateral peripheral neuropathy bilateral feet, 2014 diabetic ulcer R great toe/foot with amputation, 2017 pt states she had osteomylitis R 4th toe, viral neningitis/encephalopathy, hepatitis C tx and cured, PCOS, UTIs History of Any Multi-Drug Resistant Organisms: C-DIFF Date of last positivie culture/infection: 01/05/15 MDRO Source:: Stool Past Surgical History: Cholecystectomy, Hysterectomy, Orthopedic Surgery, Tonsillectomy Additional Past Surgical History / Comment(s): Amputation right great toe/part of foot, R knee surgery for large cyst/cartilage removed, 2005 cardiac cath showed 1 vessel disease/treated medically, hysterectomy and left a piece of the R ovary, EGD/colonoscopy. Past Anesthesia/Blood Transfusion Reactions: No Reported Reaction Additional Past Anesthesia/Blood Transfusion Reaction / Comment(s): No previous blood transfusions. Smoking Status: Current every day smoker - Past Family History Father Family Medical History: Coronary Artery Disease (CAD), Myocardial Infarction ([place]) Additional Family Medical History / Comment(s): Father at age 82 from a massive myocardial infarction. Mother Family Medical History: CVA/TIA Additional Family Medical History / Comment(s): Mother at age 76 from a CVA. Mother had TB Brother(s) Family Medical History: Cancer Additional Family Medical History / Comment(s): Patient has 3 brothers. One brother has from pancreatic cancer. Another brother has stage IV kidney failure and an aortic aneurysm that needs surgery. Medications and Allergies Home Medications Medication Instructions Recorded Confirmed Type Isosorbide Mononitrate ER [Imdur] 30 mg PO DAILY 09/30/17 12/02/19 History metFORMIN HCL 1,000 mg PO BID 09/30/17 12/02/19 History lisinopriL 30 mg PO DAILY 02/12/18 12/02/19 History Aspirin EC [Ecotrin Low Dose] 81 mg PO DAILY 10/18/19 12/02/19 History Atorvastatin [Lipitor] 10 mg PO HS 10/18/19 12/02/19 History Carvedilol [Coreg] 6.25 mg PO BID 10/18/19 12/02/19 History Ergocalciferol [Vitamin D2 50,000 unit PO Q7D 10/18/19 12/02/19 History (ISDLINDA)] Gabapentin 800 mg PO TID 10/18/19 12/02/19 History Omeprazole [PriLOSEC] 20 mg PO DAILY 10/18/19 12/02/19 History glipiZIDE [Glucotrol] 10 mg PO BID 10/18/19 12/02/19 History Pantoprazole [Protonix] 40 mg PO DAILY #0 tablet. 10/21/19 12/02/19 Rx Alogliptin Benzoate [Alogliptin] 25 mg PO DAILY 12/02/19 12/02/19 History INSULIN LISPRO (HumaLOG) [humaLOG] See Protocol SQ ACHS 12/02/19 12/02/19 History Ibuprofen [Motrin] 800 mg PO TID PRN 12/02/19 12/02/19 History Insulin Glargine [Lantus] 55 unit SQ DAILY 12/02/19 12/02/19 History Paliperidone [Invega] 9 mg PO DAILY 12/02/19 12/02/19 History QUEtiapine [SEROquel] 100 mg PO DAILY 12/02/19 12/02/19 History busPIRone HCl [Buspar] 10 mg PO TID PRN 12/02/19 12/02/19 History lamoTRIgine [LaMICtal] 100 mg PO DAILY 12/02/19 12/02/19 History Allergies Allergy/AdvReac Type Severity Reaction Status Date / Time lithium AdvReac severe Verified 12/03/19 01:49 tremors tetanus and diphtheria AdvReac chest Verified 12/03/19 01:49 toxoids pain,high [tetanus & diphtheria blood toxoids] pressure Physical Exam Vitals: Vital Signs Temp Pulse Pulse Resp BP BP Pulse Ox 12/03/19 16:46 80 167/86 12/03/19 08:05 88 114/69 12/03/19 01:31 96.9 F L 81 18 116/72 12/02/19 18:06 98.0 F 108 H 20 108/69 99 Intake and Output 12/03/19 12/03/19 12/03/19 06:59 14:59 22:59 Other: Weight 72.575 kg 72.575 kg General: [non toxic], [no distress], [appears at stated age] Derm: [warm], [dry] Head: [atraumatic], [normocephalic], [symmetric] Eyes: [EOMI], [no lid lag], [anicteric sclera] Mouth: [no lip lesion], [mucus membranes moist] Cardiovascular: [S1S2 reg], [no murmur], [positive posterior tibial pulse b ilateral], Lungs: [CTA bilateral], [no rhonchi, no rales] , [no accessory muscle use] Abdominal: [soft], [ nontender to palpation], [no guarding], [no appreciable organomegaly] Ext: [no gross muscle atrophy], [no edema], [no contractures], [full range of motion of bilateral hips], [tenderness to palpation with manipulation of the patella bilaterally with limited range of motion due to pain] Neuro: [ CN II-XI grossly intact], [no focal neuro deficits] Psych: [Alert], [oriented], [appropriate affect] Cranial Nerve Examination - Cranial Nerves Cranial Nerve II- Optic: Intact Cranial Nerve III- Oculomotor: Intact Cranial Nerve IV- Trochlear: Intact Cranial Nerve V- Trigeminal: Intact Cranial Nerve - Abducens: Intact Cranial Nerve VII- Facial: Intact Cranial Nerve VIII- Auditory: Intact Cranial Nerve IX- Glossopharyngeal: Intact Cranial Nerve X- Vagus: Intact Cranial Nerve XI- Accessory: Intact Cranial Nerve XII- Hypoglossal: Intact Results CBC & Chem 7: 12/03/19 07:16 12/03/19 07:16 Labs: Abnormal Lab Results - Last 24 Hours (Table) 12/03/19 12/03/19 12/03/19 Range/Units 07:16 07:16 08:03 Chloride 110 H (98-107) mmol/L BUN 18 H (7-17) mg/dL Glucose 110 H (74-99) mg/dL POC Glucose (mg/dL) 129 H (75-99) mg/dL Hemoglobin A1c 8.9 H (4.0-6.0) % Total Protein 6.1 L (6.3-8.2) g/dL Triglycerides 170 H (<150) mg/dL LDL Cholesterol, Calc 108 H (0-99) mg/dL HDL Cholesterol 30 L (40-60) mg/dL 12/03/19 Range/Units 13:04 Chloride (98-107) mmol/L BUN (7-17) mg/dL Glucose (74-99) mg/dL POC Glucose (mg/dL) 128 H (75-99) mg/dL Hemoglobin A1c (4.0-6.0) % Total Protein (6.3-8.2) g/dL Triglycerides (<150) mg/dL LDL Cholesterol, Calc (0-99) mg/dL HDL Cholesterol (40-60) mg/dL Assessment and Plan Assessment: Bilateral knee pain Diabetes mellitus Hypertension CAD Patient reports unstable gait after falling on her knee 3 times bilaterally. Plans: Obtain x-rays. Continue ibuprofen as needed. Plans: Continue home dose of Levemir. Regular Accu-Cheks. Hypoglycemic precautions. BP 167/86. Plans: Continue Coreg and Imdur. Monitor vitals, adjust medications if necessary. Plans: Continue aspirin and Lipitor. Thank you for this consult. Please call with any additional questions or concerns.
[2019-12-03] MEDS: IBUPROFEN 800 MG TAB PO PRN (18:37)
--- NOTE | 2019-12-03 19:18 | XR ---
EXAMINATION TYPE: XR knee complete bilateral DATE OF EXAM: 12/03/2019 COMPARISON: NONE HISTORY: Pain TECHNIQUE: 6 views FINDINGS: There is no evidence of fracture nor dislocation. Joint spaces are fairly normal. There is no sign of knee joint effusion. There is vascular calcification. IMPRESSION: No acute abnormality of the left and right knee.
[2019-12-03] MEDS: ATORVASTATIN 10 MG TAB PO SCH (20:11)
[2019-12-03 20:16] LABS: Glucose,Whole Blood 153 mg/dL (75-99)
[2019-12-03] MEDS: MAG HYDROX/AL HYDROX/SIMETH 30 ML CUP PO PRN (23:38)
[2019-12-03] MEDS: LORazepam 1 MG TAB PO PRN (23:38)
[2019-12-04 07:57] LABS: Glucose,Whole Blood 167 mg/dL (75-99)
[2019-12-04] MEDS: ISOSORBIDE MONONITRATE ER 30 MG TAB.ER.24H PO SCH (08:07)
[2019-12-04] MEDS: ASPIRIN 81 MG PO SCH (08:07)
[2019-12-04] MEDS: glipiZIDE 10 MG TAB PO SCH ×2 (08:07→20:51)
[2019-12-04] MEDS: carvediloL 6.25 MG TAB PO SCH ×2 (08:07→17:09)
[2019-12-04] MEDS: GABAPENTIN 400 MG CAP PO SCH ×3 (08:07→20:52)
[2019-12-04] MEDS: INSULIN DETEMIR (LEVEMIR) 100 UNIT/ML SYR SQ SCH (08:07)
[2019-12-04] MEDS: PANTOPRAZOLE 40 MG TABLET PO SCH (08:07)
[2019-12-04] MEDS: lamoTRIgine 100 MG TAB PO SCH (08:08)
[2019-12-04 11:13] VITALS: BMI 25.6
[2019-12-04] MEDS: MAG HYDROX/AL HYDROX/SIMETH 30 ML CUP PO PRN (12:01)
[2019-12-04 13:00] LABS: Glucose,Whole Blood 164 mg/dL (75-99)
--- NOTE | 2019-12-04 14:36 | HP ---
HISTORY AND PHYSICAL DATE OF SERVICE: 12/03/2019 IDENTIFYING DATA: The patient is a 69-year-old female. She lives in her own apartment. She was admitted through the ED for evaluation. CHIEF COMPLAINT: The patient was psychotic. She was making homicidal statements on social media. She had been off her medications. HISTORY OF PRESENTING ILLNESS: The patient was not able to provide any information regarding her current situation. Her thoughts were totally disorganized. According to the medical record, the patient had a 2 day hospitalization October 18 to October 20. She was admitted for disorganized thought process and features of depression. She was noted at that time to have poor insight. She was continued and discharged on Lamictal 200 mg a day and Seroquel 200 mg a day. Upon discharge, she went to rehabilitation program in [place] for 32 days. According to Jame, she just returned home on Thursday. He was not able to give much information about the circumstances since Thursday. Though, apparently when she left, she did not have medications prescribed and thus has been off her medications. From what Jame understands is that she was on her cellphone and would start to rant and rave making various threatening statements on social media. According to Jame when she is on her medications she does quite well and functions well in the community. When she goes off medications, she regresses very significantly. Jame did share that she does not like her current living situation in [place] and is hopeful to relocate to where she apparently had lived in the past, which presumably she sees as a better situation for her. I do not have any details of that. Her last prescribed psychotropic medications include Invega 9 mg a day, Seroquel 100 mg a day. Buspirone are 10 mg 3 times a day p.r.n. and Lamictal 100 mg a day. She is admitted for further evaluation. SUBSTANCE USE HISTORY: As per her Dr. Rodriguez's admission note of 10/19/2019. PAST MEDICAL HISTORY: Coronary artery disease, diabetes, GERD, hyperlipidemia, hypertension, liver disease. FAMILY AND SOCIAL HISTORY: Please refer to Dr. Rodriguez's previous admission note for details. MENTAL STATUS EXAM: Patient was quite restless as she sat. She gave fair eye contact at best. She did not make an effort to answer any questions. She did make some random comments that were quite limited. It was difficult to follow her train of thought. Her affect was intense. Her mood depressed. She seems significantly distressed. She seemed to have disorganized thoughts suggestive of thought disorder with delusions. It was difficult to assess for thoughts of harm to self. She had been making social media statements of harm to others. I have no details. She seemed to be oriented to her immediate circumstances, though was not able to engage in a formal cognitive assessment. PHYSICAL EXAM: As per medical consultation. Please refer to Dr. Valdez medical consultation for details. ASSESSMENT: This 69-year-old female is readmitted to the psychiatric unit for psychosis with agitation and disorganized thoughts and behavior. The primary precipitant appears to be her being off her medications. She did have a 30 day rehabilitation admission in [place], though there were no details about the specifics of that. DIAGNOSIS: 1. Bipolar affective disorder, type 2. 2. Posttraumatic stress disorder. 3. Generalized anxiety disorder. 4. Coronary artery disease. 5. Diabetes. 6. Gastroesophageal reflux disease. 7. Hyperlipidemia. 8. Hypertension. 9. Liver disease. RECOMMENDATIONS AND PLAN: The patient will be admitted for comprehensive medical psychiatric and psychosocial evaluation. We will engage the patient in individual and group therapeutic activities. I will continue the patient on her current psychotropic medications including Lamictal 100 mg a day and BuSpar 10 mg 3 times a day. We will need to coordinate with [facility]. We will focus on stabilization and discharge planning. YG / PARI: [id number] /
[2019-12-04] MEDS: busPIRone HCl 10 MG TAB PO SCH ×2 (17:09→20:51)
[2019-12-04 18:00] LABS: Glucose,Whole Blood 185 mg/dL (75-99)
--- NOTE | 2019-12-04 19:21 | XR ---
EXAMINATION TYPE: XR KUB portable DATE OF EXAM: 12/04/2019 COMPARISON: NONE HISTORY: Abdominal pain TECHNIQUE: 2 views supine FINDINGS: There is no sign of intestinal obstruction or pneumoperitoneum. Fecal pattern is normal. Th ere are clips from cholecystectomy. There are no pathologic calcifications over the kidneys. There is no evidence of a mass. IMPRESSION: Nonacute abdomen.
[2019-12-04 20:32] LABS: Glucose,Whole Blood 194 mg/dL (75-99)
[2019-12-04] MEDS: ATORVASTATIN 10 MG TAB PO SCH (20:51)
--- NOTE | 2019-12-05 01:47 | PN ---
PROGRESS NOTE DATE OF SERVICE: 12/04/2019 CHIEF COMPLAINT: The patient was psychotic. She was making homicidal statements on social media. She had been off her medications. INTERVAL HISTORY: Patient has been doing fair. She had a quiet day yesterday. She was out on the unit. She would wander about. She would interact a little with others. She attended groups and was noted to be compliant. She tended to be concrete in her thinking. It is noted that as the day went on she seemed to function a little better in the group activities. She would interact appropriately with staff and peers. She slept fairly well last night. Today she has been up. She again comes out in the day area. She will be seen wandering about. She uses a walker. She attended the 2 earlier groups in the day. She seemed to do fairly well in those groups. When I talked to the patient, it was noteworthy that she was communicating much more clearly than she did yesterday. She could talk about her situation directly and was able to provide a fair amount of details about her situation. When I asked her about issues that her brother talked about, namely that when she is off her medications she has problems. She said in reply to that that what is the biggest problem is when she is not treated fairly by others she can get in to a fairly angry distressed mood and then that seems to set off what she describes as some "manic" symptoms. She said that she would get into period for few days where she would not sleep. She would get high energy. She would be very distressed. She acknowledged, however, that medication issues may well be a factor. When she was discharged from this unit in October, she then went to a 21-day rehab program in [place]. She said she was supposed to be there for 21 days; however, her court- appointed guardian said that she did not appear to be stable by the end of 21 days, so her stay ended up being 34 days. She was quite distressed about the idea that her guardian had interceded to make that happen. Part of the situation was that she just returned back from the program on Thursday. She had her old medications. The new medications that were prescribed through the program were sent to pharmacy, though not her pharmacy as such she was not on the medication she should have been from Thursday until Thursday. She acknowledges that that may well have been a big factor in setting off the distress she was dealing with. She acknowledges that today her thinking is much more clear than it was yesterday. She still is somewhat distressed about her situation, though overall sees that her mood is improving and she feels a little more hopeful about her situation in general. She tolerates her psychotropic medications. MENTAL STATUS: Patient gave fairly good eye contact. Psychomotor activity was a little restless. She answered questions appropriately. Her thoughts were clear. She was spontaneous and somewhat interactive. Her affect was somewhat anxious. She had a somewhat distressed manner. Her mood was dysphoric though not clearly down or depressed. Overall, she had a better outlook. There was no immediate evidence for thought disorder. She voiced no thoughts of harm. She was oriented and alert. ASSESSMENT: I will continue the current diagnosis and treatment plan. I will continue psychotropic medications the same. Patient appears to be improving and has shown significant change from the disorganized state she presented with when she first came to the hospital. I reviewed medication issues with the patient. Also discussed discharge planning. We will continue to focus on stabilization and discharge planning. YG / PARI: [id number] /
[2019-12-05 07:50] LABS: Glucose,Whole Blood 150 mg/dL (75-99)
[2019-12-05] MEDS: busPIRone HCl 10 MG TAB PO SCH ×3 (08:24→21:00)
[2019-12-05] MEDS: carvediloL 6.25 MG TAB PO SCH ×2 (08:24→17:28)
[2019-12-05] MEDS: ASPIRIN 81 MG PO SCH (08:24)
[2019-12-05] MEDS: GABAPENTIN 400 MG CAP PO SCH ×3 (08:25→21:00)
[2019-12-05] MEDS: INSULIN DETEMIR (LEVEMIR) 100 UNIT/ML SYR SQ SCH (08:25)
[2019-12-05] MEDS: glipiZIDE 10 MG TAB PO SCH ×2 (08:25→21:02)
[2019-12-05] MEDS: PANTOPRAZOLE 40 MG TABLET PO SCH (08:26)
[2019-12-05] MEDS: ISOSORBIDE MONONITRATE ER 30 MG TAB.ER.24H PO SCH (08:26)
[2019-12-05] MEDS: lamoTRIgine 100 MG TAB PO SCH (08:26)
[2019-12-05] MEDS ORDERED: ERGOCALCIFEROL 50,000 UNIT CAP PO SCH (09:00)
--- NOTE | 2019-12-05 10:38 | P.PN ---
Progress Note - Text Progress Note Date: 12/05/19 Interval History: Patient was seen attending group and was directable and agreeable to speak with ghost writer in the office. Patient reports that she is uncertain as to why she was brought to the hospital. When confronted that she was noted to have made homicidal statements, the patient does not recall this. Patient attributes her current presentation in the hospital with her abrupt discontinuation of her medications after returning from [place]. As per intake note from Dr. Wilkerson, the patient was noted to be very intense and was disorganized upon initial presentation. She is currently not endorsing any auditory or visual hallucinations. She denies any paranoia or delusions. She is denying any suicidal or homicidal ideation, intention, and/or plan. Her whole medications of Lamictal and BuSpar were continued. Her Seroquel was not. Mental Status Exam: General Appearance: Patient appears to be stated age is alert, directable, and cooperative. Behavior: Patient is calmly seated without any agitated behavior. Speech: Patient's speech is fluent and nonpressured. Mood/Affect: Mood is improving mildly, affect is congruent and constricted. Suicidality/Homicidality: Patient denies having any suicidal or homicidal ideation intent or plan. Perceptions: Patient denies any visual hallucinations and denies any auditory hallucinations Though content/process: There is no evidence of any delusional thought content and thought process is linear and goal-directed. Memory and concentration: AOX3, grossly intact for the purposes of this session Judgment and insight: Improving mildly Assessment Bipolar disorder, type II Posttraumatic Stress disorder Generalized anxiety disorder Plan: -Patient continues to meet criteria for inpatient psychiatric admission for symptom stabilization and safety. Patient is petitioned and certified. -Medications: Continue BuSpar 10 mg by mouth 3 times a day, gabapentin 800 mg 3 times a day, Lamictal 100 mg by mouth daily Restart Seroquel 25 mg by mouth daily at bedtime. -When necessary Ativan and Geodon for agitation/aggression. -SW on board for discharge planning. Encouraged the patient to participate in milieu.
[2019-12-05 12:46] LABS: Glucose,Whole Blood 225 mg/dL (75-99)
[2019-12-05 17:25] LABS: Glucose,Whole Blood 201 mg/dL (75-99)
[2019-12-05] MEDS: INSULIN ASPART (NovoLOG) 100 UNIT/ML VIAL SQ SCH ×2 (17:27→20:59)
[2019-12-05] MEDS ORDERED: QUEtiapine 25 MG TAB PO SCH (21:00)
[2019-12-05] MEDS: ATORVASTATIN 10 MG TAB PO SCH (21:00)
[2019-12-05] MEDS: IBUPROFEN 800 MG TAB PO PRN (21:00)
[2019-12-05 21:16] LABS: Glucose,Whole Blood 145 mg/dL (75-99)
[2019-12-06] MEDS: IBUPROFEN 800 MG TAB PO PRN (03:33)
[2019-12-06 07:59] LABS: Glucose,Whole Blood 134 mg/dL (75-99)
[2019-12-06] MEDS: INSULIN ASPART (NovoLOG) 100 UNIT/ML VIAL SQ SCH ×4 (08:11→20:25)
[2019-12-06] MEDS: busPIRone HCl 10 MG TAB PO SCH ×3 (08:34→20:55)
[2019-12-06] MEDS: ISOSORBIDE MONONITRATE ER 30 MG TAB.ER.24H PO SCH (08:35)
[2019-12-06] MEDS: PANTOPRAZOLE 40 MG TABLET PO SCH (08:35)
[2019-12-06] MEDS: lamoTRIgine 100 MG TAB PO SCH (08:35)
[2019-12-06] MEDS: ASPIRIN 81 MG PO SCH (08:35)
[2019-12-06] MEDS: carvediloL 6.25 MG TAB PO SCH ×2 (08:35→16:43)
[2019-12-06] MEDS: GABAPENTIN 400 MG CAP PO SCH ×3 (08:35→20:55)
[2019-12-06] MEDS: glipiZIDE 10 MG TAB PO SCH ×2 (08:35→20:55)
[2019-12-06] MEDS: INSULIN DETEMIR (LEVEMIR) 100 UNIT/ML SYR SQ SCH (08:36)
--- NOTE | 2019-12-06 09:31 | P.PN ---
Progress Note - Text Progress Note Date: 12/06/19 Interval History: Patient was seen attending group and was directable and agreeable to speak with screenplay writer in the office. Patient is currently denying any suicidal or homicidal ideations, intentions, and/or plan. She is not reporting any significant symptoms of depression or anxiety at this time. She is not endorsing any significant symptoms of psychosis. She reports no auditory or visual hallucinations. She denies any paranoia or delusions. In regards to her admission, the patient states that she is confused as to why she was brought in by police. She is unable to recall if she has made any homicidal or suicidal statements. She does express some family conflict with the petitioner but does not endorse any intentions of harming or vengeance at this time. She has been adherent with her medications and denies any side effects. She reports she is eating well and sleeping well. She states that upon discharge, [place] judge [place] allow. Mental Status Exam: General Appearance: Patient appears to be stated age is alert, directable, and cooperative. Behavior: Patient is calmly seated without any agitated behavior. Speech: Patient's speech is fluent and nonpressured. Mood/Affect: Mood is improving mildly, affect is congruent and constricted. Suicidality/Homicidality: Patient denies having any suicidal or homicidal ideation intent or plan. Perceptions: Patient denies any visual hallucinations and denies any auditory h allucinations Though content/process: There is no evidence of any delusional thought content and thought process is linear and goal-directed. Memory and concentration: AOX3, grossly intact for the purposes of this session Judgment and insight: Improving mildly Assessment Bipolar disorder, type II Posttraumatic Stress disorder Generalized anxiety disorder Plan: -Patient continues to meet criteria for inpatient psychiatric admission for symptom stabilization and safety. Patient is petitioned and certified. Patient plans to defer. -Medications: Continue BuSpar 10 mg 3 times a day Gabapentin 800 mg 3 times a day Lamictal 100 mg by mouth daily Increase Seroquel to 50 mg by mouth at bedtime -When necessary Ativan and Geodon for agitation/aggression. -SW on board for discharge planning. Encouraged the patient to participate in milieu.
[2019-12-06 12:56] LABS: Glucose,Whole Blood 127 mg/dL (75-99)
[2019-12-06] MEDS: LORazepam 1 MG TAB PO PRN (16:43)
[2019-12-06 17:24] LABS: Glucose,Whole Blood 200 mg/dL (75-99)
[2019-12-06 19:47] LABS: Glucose,Whole Blood 189 mg/dL (75-99)
[2019-12-06] MEDS: ATORVASTATIN 10 MG TAB PO SCH (20:55)
[2019-12-06] MEDS ORDERED: QUEtiapine 50 MG TAB PO SCH (21:00)
[2019-12-07 07:06] VITALS: RESP 16; TEMP 97.9
[2019-12-07] MEDS: INSULIN DETEMIR (LEVEMIR) 100 UNIT/ML SYR SQ SCH (08:04)
[2019-12-07] MEDS: INSULIN ASPART (NovoLOG) 100 UNIT/ML VIAL SQ SCH ×2 (08:04→13:06)
[2019-12-07] MEDS: ASPIRIN 81 MG PO SCH (08:04)
[2019-12-07] MEDS: GABAPENTIN 400 MG CAP PO SCH (08:05)
[2019-12-07] MEDS: lamoTRIgine 100 MG TAB PO SCH (08:05)
[2019-12-07] MEDS: carvediloL 6.25 MG TAB PO SCH (08:05)
[2019-12-07] MEDS: ISOSORBIDE MONONITRATE ER 30 MG TAB.ER.24H PO SCH (08:05)
[2019-12-07] MEDS: glipiZIDE 10 MG TAB PO SCH (08:05)
[2019-12-07] MEDS: busPIRone HCl 10 MG TAB PO SCH (08:05)
[2019-12-07] MEDS: PANTOPRAZOLE 40 MG TABLET PO SCH (08:05)
[2019-12-07 08:13] LABS: Glucose,Whole Blood 154 mg/dL (75-99)
[2019-12-07 09:17] VITALS: BP 130/68; PULSE 91
--- NOTE | 2019-12-07 09:35 | P.DS ---
Providers Date of admission: 12/02/19 21:40 Expected date of discharge: 12/07/19 Attending physician: Ezequiel Bartlett MD Consults: 12/02/19 22:39 Consult Physician Routine Consulting Provider: Jero Higgins Consult Reason/Comments: medical management Do you want consulting provider notified?: Yes Primary care physician: Reinaldo Randall - Discharge Diagnosis(es) (1) Bipolar II disorder Current Visit: Yes Status: Acute Priority: High (2) Posttraumatic stress disorder Current Visit: Yes Status: Chronic Priority: Medium (3) Generalized anxiety disorder Current Visit: Yes Status: Chronic Priority: Medium Hospital Course: Admission HPI: Initial psychiatric evaluation was completed by Dr. Wilkerson on 12/03/2019 who wrote: "The patient is a 69-year-old female. The patient was psychotic. She was making homicidal statements on social media. She has been off her medications. The patient was not able to provide any information regarding her current situation. Her thoughts are totally disorganized. According to the medical record, the patient had a 2 day hospitalization from October 18 to October 20. She was admitted for disorganized thought process and features of depression. She was noted at that time to have poor insight. She was continued and discharged on Lamictal 20 mg a day and Seroquel 200 mg a day. Upon discharge, she went to a rehabilitation program in [place] for 32 days. According to Jame, she just returned home on Thursday. He was not able to give much information about the circumstances since Thursday. Though, apparently when she left, she did not have medications prescribed doses been off her medications. From what Jame understands is that she was on her cell phone and would start to rant and rave making various threatening statements and social media. According to Jame when she is on her medication she does quite well in function as well as committed. When she goes off her medications, she regresses very significantly. Jame did share that she does not like her current living situation in [place] and is unable to relocate to where she apparently had lived in the past, which presumably she sees as a better situation for her. I do not have any details of that. Her last prescribed psychotropic medications include Invega 9 mg a day, Seroquel 100 mg a day. Risperidone 10 mg 3 times a day as needed and Lamictal 100 mg a day. She is admitted for further evaluation. Hospital course: Upon admission to the unit patient was initially noted by Dr Wilkerson to be a poor historian, disorganized, with elevated psychomotor activity. Patient was however directable and agreeable to commence treatment. Patient got along well with other patients on the unit and followed unit protocol. Patient was compliant with the medications and denied any side effects throughout hospital course. Patient was started on her home medications of Lamictal and BuSpar. Patient spoke of her stressors and engaged in therapy both group and individual. Patient was also seen by medical team for history and physical exam. Seroquel was added back to the patient's regimen as well. When evaluated by Dr. Bartlett, the patient has had significant improvement in mood and organization. She was a clear historian and able to provide the details of events leading to the hospitalization. She is not endorsing any homicidal ideation or intention. She has been getting along with peers and staff with no abnormal or intrusive behaviors. Patient deferred on 12/06/2019. She has been adherent with her medications. Throughout the course of the hospitalization patient gradually improved with regards to mood stability, organize thoughts and sleep and became future oriented with improved insight and judgment. On the day of discharge patient denied any suicidal or homicidal ideations intent or plan denied any auditory or visual hallucinations. Patient endorsed wanting to live for her health and [place] The patient denied any access to guns or weapons. Patient denied any paranoia and did not endorse any delusions. Patient does not have a significant history of substance abuse however was counseled on abstaining from all substances including alcohol and marijuana. Patient was also counseled on the medications and need for regular compliance and was encouraged to follow-up with their outpatient appointment for mental health and also for primary care. Prior to discharge a family meeting will be arranged by social worker health services to answer any questions and ensure safety upon discharge. Mental status exam: General Appearance: Patient appears to be stated age is alert, pleasant, and cooperative. Patient is in no acute distress and has fair hygiene and grooming Behavior: Patient is calmly seated without any agitated behavior. Speech: Patient's speech is fluent and nonpressured. Mood/Affect: Patient reports their mood is "feeling great", affect is congruent and euthymic. Suicidality/Homicidality: Patient denies having any suicidal or homicidal ideation intent or plan. Perceptions: Patient denies any auditory or visual hallucinations. Though content/process: There is no evidence of any delusional thought content and thought process is linear and goal-directed. more future oriented Memory and concentration: AOX3, grossly intact for the purposes of this session. Can spell "WORLD" backwards correctly. Judgment and insight: Improved with guarded prognosis Impression: Bipolar disorder, type II Posttraumatic Stress disorder Generalized anxiety disorder Plan: -Continue with discharge today as patient has improved and stabilized psychiatrically and is not currently an imminent threat to herself and/or others. Patient will remain at chronically elevated risk for harm to self and/or others due to her history of impulsivity and medication non-adherence -Continue medications: BuSpar 10 mg 3 times a day Gabapentin 800 mg 3 times a day Lamictal 100 mg by mouth daily Seroquel 50 mg by mouth at bedtime -Patient was counseled on the need for medication compliance and appropriate follow-up at mental health and also primary care for medical issues. Patient verbalized understanding and agreed. -Social work to arrange for and conduct family meeting to ensure safety upon discharge and answer any questions/concerns. Social work also to arrange for patients follow up appointments with [facility] for psychiatric care along with follow up with primary care provider. -Patient counseled on abstaining from recreational drugs and marijuana and alcohol. Was informed/educated on the adverse effects on their physical and mental health. Patient verbally agreed and understood. -Patient was instructed to return to the hospital or seek immediate medical care if their psychiatric or medical symptoms do worsen or reoccur. Vital Signs Temp 97.9 F 12/07/19 06:33 Pulse 91 12/07/19 09:17 Resp 16 12/07/19 06:33 BP 130/68 12/07/19 09:17 Pulse Ox 99 12/02/19 18:06 Allergies Allergy/AdvReac Type Severity Reaction Status Date / Time lithium AdvReac severe Verified 12/03/19 01:49 tremors tetanus and diphtheria AdvReac chest Verified 12/03/19 01:49 toxoids pain,high [tetanus & diphtheria blood toxoids] pressure Laboratory Results WBC 8.3 k/uL (3.8-10.6) 12/03/19 07:16 RBC 4.02 m/uL (3.80-5.40) 12/03/19 07:16 Hgb 12.6 gm/dL (11.4-16.0) 12/03/19 07:16 Hct 38.9 % (34.0-46.0) 12/03/19 07:16 MCV 96.8 fL (80.0-100.0) 12/03/19 07:16 MCH 31.3 pg (25.0-35.0) 12/03/19 07:16 MCHC 32.3 g/dL (31.0-37.0) 12/03/19 07:16 RDW 13.3 % (11.5-15.5) 12/03/19 07:16 Plt Count 339 k/uL (150-450) 12/03/19 07:16 Neutrophils % 60 % 12/03/19 07:16 Lymphocytes % 30 % 12/03/19 07:16 Monocytes % 4 % 12/03/19 07:16 Eosinophils % 4 % 12/03/19 07:16 Basophils % 1 % 12/03/19 07:16 Neutrophils # 5.0 k/uL (1.3-7.7) 12/03/19 07:16 Lymphocytes # 2.5 k/uL (1.0-4.8) 12/03/19 07:16 Monocytes # 0.4 k/uL (0-1.0) 12/03/19 07:16 Eosinophils # 0.3 k/uL (0-0.7) 12/03/19 07:16 Basophils # 0.0 k/uL (0-0.2) 12/03/19 07:16 Sodium 140 mmol/L (137-145) 12/03/19 07:16 Potassium 3.8 mmol/L (3.5-5.1) 12/03/19 07:16 Chloride 110 mmol/L (98-107) H 12/03/19 07:16 Carbon Dioxide 24 mmol/L (22-30) 12/03/19 07:16 Anion Gap 6 mmol/L 12/03/19 07:16 BUN 18 mg/dL (7-17) H 12/03/19 07:16 Creatinine 0.85 mg/dL (0.52-1.04) 12/03/19 07:16 Est GFR (CKD-EPI)AfAm 81 (>60 ml/min/1.73 sqM) 12/03/19 07:16 Est GFR (CKD-EPI)NonAf 70 (>60 ml/min/1.73 sqM) 12/03/19 07:16 Glucose 110 mg/dL (74-99) H 12/03/19 07:16 POC Glucose (mg/dL) 154 mg/dL (75-99) H 12/07/19 07:59 POC Glu Hall Monitor Phill Petersen 12/07/19 07:[address] Glu mg/dL 209 12/03/19 07:16 Hemoglobin A1c 8.9 % (4.0-6.0) H 12/03/19 07:16 Calcium 8.9 mg/dL (8.4-10.2) 12/03/19 07:16 Total Bilirubin 0.5 mg/dL (0.2-1.3) 12/03/19 07:16 AST 28 U/L (14-36) 12/03/19 07:16 ALT 21 U/L (4-34) 12/03/19 07:16 Alkaline Phosphatase 72 U/L (38-126) 12/03/19 07:16 Total Protein 6.1 g/dL (6.3-8.2) L 12/03/19 07:16 Albumin 3.6 g/dL (3.5-5.0) 12/03/19 07:16 Triglycerides 170 mg/dL (<150) H 12/03/19 07:16 Cholesterol 172 mg/dL (<200) 12/03/19 07:16 LDL Cholesterol, Calc 108 mg/dL (0-99) H 12/03/19 07:16 HDL Cholesterol 30 mg/dL (40-60) L 12/03/19 07:16 TSH 0.992 mIU/L (0.465-4.680) 12/03/19 07:16 Patient Condition at Discharge: Stable Plan - Discharge Summary Discharge Rx Participant: Yes New Discharge Prescriptions: New QUEtiapine [SEROquel] 50 mg PO HS 30 Days tab Continue Ergocalciferol [Vitamin D2 (DRISDOL)] 50,000 unit PO Q7D Alogliptin Benzoate [Alogliptin] 25 mg PO DAILY 30 Days tab busPIRone HCl [Buspar] 10 mg PO TID PRN 30 Days tab PRN Reason: Anxiety Carvedilol [Coreg] 6.25 mg PO BID 30 Days tab Aspirin EC [Ecotrin Low Dose] 81 mg PO DAILY 30 Days tab Gabapentin 800 mg PO TID 30 Days tab glipiZIDE [Glucotrol] 10 mg PO BID 30 Days tab Isosorbide Mononitrate ER [Imdur] 30 mg PO DAILY 30 Days tab lamoTRIgine [LaMICtal] 100 mg PO DAILY 30 Days tab Insulin Glargine [Lantus] 55 unit SQ DAILY 30 Days vial Atorvastatin [Lipitor] 10 mg PO HS 30 Days tab lisinopriL 30 mg PO DAILY 30 Days tab metFORMIN HCL 1,000 mg PO BID 30 Days tab Ibuprofen [Motrin] 800 mg PO TID PRN 30 Days tab PRN Reason: Pain Omeprazole [PriLOSEC] 20 mg PO DAILY 30 Days cap Discontinued Pantoprazole [Protonix] 40 mg PO DAILY #0 tablet. INSULIN LISPRO (HumaLOG) [humaLOG] See Protocol SQ ACHS Paliperidone [Invega] 9 mg PO DAILY QUEtiapine [SEROquel] 100 mg PO DAILY Discharge Medication List Ergocalciferol [Vitamin D2 (DRISDOL)] 50,000 unit PO Q7D 10/18/19 [History] Alogliptin Benzoate [Alogliptin] 25 mg PO DAILY 30 Days tab 12/07/19 [Rx] Aspirin EC [Ecotrin Low Dose] 81 mg PO DAILY 30 Days tab 12/07/19 [Rx] Atorvastatin [Lipitor] 10 mg PO HS 30 Days tab 12/07/19 [Rx] Carvedilol [Coreg] 6.25 mg PO BID 30 Days tab 12/07/19 [Rx] Gabapentin 800 mg PO TID 30 Days tab 12/07/19 [Rx] Ibuprofen [Motrin] 800 mg PO TID PRN 30 Days tab 12/07/19 [Rx] Insulin Glargine [Lantus] 55 unit SQ DAILY 30 Days vial 12/07/19 [Rx] Isosorbide Mononitrate ER [Imdur] 30 mg PO DAILY 30 Days tab 12/07/19 [Rx] Omeprazole [PriLOSEC] 20 mg PO DAILY 30 Days cap 12/07/19 [Rx] QUEtiapine [SEROquel] 50 mg PO HS 30 Days tab 12/07/19 [Rx] busPIRone HCl [Buspar] 10 mg PO TID PRN 30 Days tab 12/07/19 [Rx] glipiZIDE [Glucotrol] 10 mg PO BID 30 Days tab 12/07/19 [Rx] lamoTRIgine [LaMICtal] 100 mg PO DAILY 30 Days tab 12/07/19 [Rx] lisinopriL 30 mg PO DAILY 30 Days tab 12/07/19 [Rx] metFORMIN HCL 1,000 mg PO BID 30 Days tab 12/07/19 [Rx] Follow up Appointment(s)/Referral(s): Reinaldo Randall DO [Primary Care Provider] - 1-2 days Activity/Diet/Wound Care/Special Instructions: Activity and diet as tolerated. Avoid the use of street drugs and alcohol. Take all medications as prescribed. When you are in need of refills on your medications please contact your medical provider and/or outpatient psychiatrist to have this done. Please go to scheduled outpatient appointment for aftercare treatment. If symptoms return or become worse, call the crisis line at and/or go to the nearest emergency room for evaluation.
[2019-12-07 13:03] LABS: Glucose,Whole Blood 146 mg/dL (75-99)
== END 2019-12-07 13:25 | disposition home or self-care (01) | DRG 885 ==
LOC: EC 18:02 → 3MHU 21:40
PROVIDERS: ADMIT Psychiatry & Neurology Psychiatry; ATTEND Psychiatry & Neurology Psychiatry
DX: F31.81 Bipolar II disorder (principal); E78.5 Hyperlipidemia, unspecified; E11.42 Type 2 diabetes mellitus with diabetic polyneuropathy; F17.200 Nicotine dependence, unspecified, uncomplicated; F41.1 Generalized anxiety disorder; F43.10 Post-traumatic stress disorder, unspecified; I10 Essential (primary) hypertension; I25.10 Atherosclerotic heart disease of native coronary artery without angina pectoris; K21.9 Gastro-esophageal reflux disease without esophagitis; R45.850 Homicidal ideations; Z79.82 Long term (current) use of aspirin; Z63.9 Problem related to primary support group, unspecified; Z79.899 Other long term (current) drug therapy; Z79.84 Long term (current) use of oral hypoglycemic drugs; Z88.7 Allergy status to serum and vaccine; Z91.09 Other allergy status, other than to drugs and biological substances; Z86.19 Personal history of other infectious and parasitic diseases; Z90.49 Acquired absence of other specified parts of digestive tract; Z98.890 Other specified postprocedural states; Z90.710 Acquired absence of both cervix and uterus; Z90.89 Acquired absence of other organs; Z82.49 Family history of ischemic heart disease and other diseases of the circulatory system; Z80.0 Family history of malignant neoplasm of digestive organs; Z82.3 Family history of stroke; Z91.14 Patient's other noncompliance with medication regimen; Z84.1 Family history of disorders of kidney and ureter; Z83.6 Family history of other diseases of the respiratory system
CPT/HCPCS: 74018; 80053; 80061; 82075; 83036; 84443; 85025; 99285

== ENCOUNTER 2019-12-09 17:44 | Emergency (ER) | payer MEDICARE ==
[2019-12-09 17:55] VITALS: TEMP 98
--- NOTE | 2019-12-09 18:28 | ED ---
Psych HPI - General Chief Complaint: Psychiatric Symptoms Stated Complaint: mental health status Time Seen by Provider: 12/09/19 17:59 Source: patient Mode of arrival: ambulatory - History of Present Illness Initial Comments: 69-year-old female presenting for does not want to live. Patient states that she is not suicidal but does not want to live she states she is depressed she states this is because she got a fight with her son last night. Patient states she would never want to kill herself she likes living. She denies homicidal ideation. Patient is tearful and states she is just upset the things that he center last night. She states that he now regrets it. She denies additional complaints patient appears nontoxic while on arrival - Related Data Home Medications Medication Instructions Recorded Confirmed Ergocalciferol [Vitamin D2 50,000 unit PO Q7D 10/18/19 12/02/19 (DRISDOL)] Previous Rx's Medication Instructions Recorded Alogliptin Benzoate [Alogliptin] 25 mg PO DAILY 30 Days tab 12/07/19 Aspirin EC [Ecotrin Low Dose] 81 mg PO DAILY 30 Days tab 12/07/19 Atorvastatin [Lipitor] 10 mg PO HS 30 Days tab 12/07/19 Carvedilol [Coreg] 6.25 mg PO BID 30 Days tab 12/07/19 Gabapentin 800 mg PO TID 30 Days tab 12/07/19 Ibuprofen [Motrin] 800 mg PO TID PRN 30 Days tab 12/07/19 Insulin Glargine [Lantus] 55 unit SQ DAILY 30 Days vial 12/07/19 Isosorbide Mononitrate ER [Imdur] 30 mg PO DAILY 30 Days tab 12/07/19 Omeprazole [PriLOSEC] 20 mg PO DAILY 30 Days cap 12/07/19 QUEtiapine [SEROquel] 50 mg PO HS 30 Days tab 12/07/19 busPIRone HCl [Buspar] 10 mg PO TID PRN 30 Days tab 12/07/19 glipiZIDE [Glucotrol] 10 mg PO BID 30 Days tab 12/07/19 lamoTRIgine [LaMICtal] 100 mg PO DAILY 30 Days tab 12/07/19 lisinopriL 30 mg PO DAILY 30 Days tab 12/07/19 metFORMIN HCL 1,000 mg PO BID 30 Days tab 12/07/19 Cephalexin [Keflex] 500 mg PO Q6HR 7 Days #28 cap 12/09/19 Allergies Allergy/AdvReac Type Severity Reaction Status Date / Time lithium AdvReac severe Verified 12/09/19 17:51 tremors tetanus and diphtheria AdvReac chest Verified 12/09/19 17:51 toxoids pain,high [tetanus & diphtheria blood toxoids] pressure Review of Systems ROS Statement: Those systems with pertinent positive or pertinent negative responses have been documented in the HPI. ROS Other: All systems not noted in ROS Statement are negative. Past Medical History Past Medical History: Coronary Artery Disease (CAD), Diabetes Mellitus, GERD/Reflux, Hyperlipidemia, Hypertension, Liver Disease Additional Past Medical History / Comment(s): states "I have a purple bump on the inside of my lip",NIDDM type II, bilateral peripheral neuropathy bilateral feet, 2014 diabetic ulcer R great toe/foot with amputation, 2017 pt states she had osteomylitis R 4th toe, viral neningitis/encephalopathy, hepatitis C tx and cured, PCOS, UTIs History of Any Multi-Drug Resistant Organisms: C-DIFF Date of last positivie culture/infection: 01/05/15 MDRO Source:: Stool Past Surgical History: Cholecystectomy, Hysterectomy, Orthopedic Surgery, Tonsillectomy Additional Past Surgical History / Comment(s): Amputation right great toe/part of foot, R knee surgery for large cyst/cartilage removed, 2005 cardiac cath showed 1 vessel disease/treated medically, hysterectomy and left a piece of the R ovary, EGD/colonoscopy. Past Anesthesia/Blood Transfusion Reactions: No Reported Reaction Additional Past Anesthesia/Blood Transfusion Reaction / Comment(s): No previous blood transfusions. Past Psychological History: Anxiety, Bipolar, PTSD Smoking Status: Current every day smoker Past Alcohol Use History: None Reported, Abuse Past Drug Use History: None Reported, Marijuana - Past Family History Father Family Medical History: Coronary Artery Disease (CAD), Myocardial Infarction ([place]) Additional Family Medical History / Comment(s): Father at age 82 from a massive myocardial infarction. Mother Family Medical History: CVA/TIA Additional Family Medical History / Comment(s): Mother at age 76 from a CVA. Mother had TB Brother(s) Family Medical History: Cancer Additional Family Medical History / Comment(s): Patient has 3 brothers. One brother has from pancreatic cancer. Another brother has stage IV kidney failure and an aortic aneurysm that needs surgery. General Exam - General Exam Comments Initial Comments: General: The patient is awake and alert Eye: Pupils are equal, round and reactive to light, extra-ocular movements are intact. No nystagmus. There is normal conjunctiva bilaterally. No signs of icterus. Ears, nose, mouth and throat: There are moist mucous membranes and no oral l esions. Neck: The neck is supple, there is no tenderness or JVD. Cardiovascular: There is a regular rate and rhythm. No murmur, rub or gallop is appreciated. Respiratory: Lungs are clear to auscultation, respirations are non-labored, breath sounds are equal. No wheezes, stridor, rales, or rhonchi. Gastrointestinal: Soft, non-distended, non-tender abdomen without masses or organomegaly noted. There is no rebound or guarding present. Musculoskeletal: Normal ROM, no tenderness. Strength 5/5. Sensation intact. Pulses equal bilaterally 2+. Neurological: A&O x 3. CN II-XII intact grossly, There are no obvious motor or sensory deficits. Coordination appears grossly intact. Speech is normal. Skin: Skin is warm and dry and no rashes or lesions are noted. Psychiatric: Cooperative Limitations: no limitations Course Vital Signs 12/09/19 12/09/19 17:51 21:00 Temperature 98 F 98 F Pulse Rate 91 97 Respiratory 18 16 Rate Blood Pressure 166/95 137/90 O2 Sat by Pulse 97 99 Oximetry Medical Decision Making - Medical Decision Making labs stable. glucose stable. Patient states she would never kill herself but doesnt like living, upset with son. medically cleared for eps evaluation. Patient states she wants to go home to EPS and has dinner plans. EPS consulted psychiatry who recommend d/c of patient. Patient discharged appearing well on reevaluation, agreeable to care plan/safety plan and discharge. - Lab Data Result diagrams: 12/09/19 19:18 12/09/19 19:18 Lab Results 12/09/19 12/09/19 12/09/19 Range/Units 19:18 19:18 19:18 WBC 11.8 H (3.8-10.6) k/uL RBC 4.39 (3.80-5.40) m/uL Hgb 14.1 (11.4-16.0) gm/dL Hct 42.0 (34.0-46.0) % MCV 95.8 (80.0-100.0) fL MCH 32.1 (25.0-35.0) pg MCHC 33.5 (31.0-37.0) g/dL RDW 13.0 (11.5-15.5) % Plt Count 426 (150-450) k/uL Neutrophils % 61 % Lymphocytes % 30 % Monocytes % 4 % Eosinophils % 3 % Basophils % 1 % Neutrophils # 7.1 (1.3-7.7) k/uL Lymphocytes # 3.5 (1.0-4.8) k/uL Monocytes # 0.5 (0-1.0) k/uL Eosinophils # 0.3 (0-0.7) k/uL Basophils # 0.1 (0-0.2) k/uL Sodium 141 (137-145) mmol/L Potassium 4.1 (3.5-5.1) mmol/L Chloride 108 H (98-107) mmol/L Carbon Dioxide 23 (22-30) mmol/L Anion Gap 10 mmol/L BUN 17 (7-17) mg/dL Creatinine 0.91 (0.52-1.04) mg/dL Est GFR (CKD-EPI)AfAm 74 (>60 ml/min/1.73 sqM) Est GFR (CKD-EPI)NonAf 65 (>60 ml/min/1.73 sqM) Glucose 72 L (74-99) mg/dL POC Glucose (mg/dL) (75-99) mg/dL POC Glu Ccnp ID Calcium 9.8 (8.4-10.2) mg/dL Total Bilirubin 0.6 (0.2-1.3) mg/dL AST 45 H (14-36) U/L ALT 27 (4-34) U/L Alkaline Phosphatase 80 (38-126) U/L Total Protein 7.1 (6.3-8.2) g/dL Albumin 4.4 (3.5-5.0) g/dL Urine Color Light Yellow Urine Appearance Clear (Clear) Urine pH 6.5 (5.0-8.0) Ur Specific [place] 1.007 (1.001-1.035) Urine Protein Negative (Negative) Urine Glucose (UA) Negative (Negative) Urine Ketones Negative (Negative) Urine Blood Negative (Negative) Urine Nitrite Negative (Negative) Urine Bilirubin Negative (Negative) Urine Urobilinogen <2.0 (<2.0) mg/dL Ur Leukocyte Esterase Moderate H (Negative) Urine RBC 2 (0-5) /hpf Urine WBC 10 H (0-5) /hpf Ur Squamous Epith Cells 4 (0-4) /hpf Urine Bacteria Rare H (None) /hpf Urine Yeast (Budding) Occasional H (None) /hpf Urine Opiates Screen Not Detected (NotDetected) Ur Oxycodone Screen Not Detected (NotDetected) Urine Methadone Screen Not Detected (NotDetected) Ur Propoxyphene Screen Not Detected (NotDetected) Ur Barbiturates Screen Not Detected (NotDetected) U Tricyclic Antidepress Detected H (NotDetected) Ur Phencyclidine Scrn Not Detected (NotDetected) Ur Amphetamines Screen Not Detected (NotDetected) U Methamphetamines Scrn Not Detected (NotDetected) U Benzodiazepines Scrn Detected H (NotDetected) Urine Cocaine Screen Not Detected (NotDetected) U Marijuana (THC) Screen Detected H (NotDetected) Serum Alcohol <10 mg/dL 12/09/19 12/09/19 Range/Units 19:22 20:39 WBC (3.8-10.6) k/uL RBC (3.80-5.40) m/uL Hgb (11.4-16.0) gm/dL Hct (34.0-46.0) % MCV (80.0-100.0) fL MCH (25.0-35.0) pg MCHC (31.0-37.0) g/dL RDW (11.5-15.5) % Plt Count (150-450) k/uL Neutrophils % % Lymphocytes % % Monocytes % % Eosinophils % % Basophils % % Neutrophils # (1.3-7.7) k/uL Lymphocytes # (1.0-4.8) k/uL Monocytes # (0-1.0) k/uL Eosinophils # (0-0.7) k/uL Basophils # (0-0.2) k/uL Sodium (137-145) mmol/L Potassium (3.5-5.1) mmol/L Chloride (98-107) mmol/L Carbon Dioxide (22-30) mmol/L Anion Gap mmol/L BUN (7-17) mg/dL Creatinine (0.52-1.04) mg/dL Est GFR (CKD-EPI)AfAm (>60 ml/min/1.73 sqM) Est GFR (CKD-EPI)NonAf (>60 ml/min/1.73 sqM) Glucose (74-99) mg/dL POC Glucose (mg/dL) 87 151 H (75-99) mg/dL POC Glu Ccnp ID Bobbi Hopkins Catherine Calcium (8.4-10.2) mg/dL Total Bilirubin (0.2-1.3) mg/dL AST (14-36) U/L ALT (4-34) U/L Alkaline Phosphatase (38-126) U/L Total Protein (6.3-8.2) g/dL Albumin (3.5-5.0) g/dL Urine Color Urine Appearance (Clear) Urine pH (5.0-8.0) Ur Specific [place] (1.001-1.035) Urine Protein (Negative) Urine Glucose (UA) (Negative) Urine Ketones (Negative) Urine Blood (Negative) Urine Nitrite (Negative) Urine Bilirubin (Negative) Urine Urobilinogen (<2.0) mg/dL Ur Leukocyte Esterase (Negative) Urine RBC (0-5) /hpf Urine WBC (0-5) /hpf Ur Squamous Epith Cells (0-4) /hpf Urine Bacteria (None) /hpf Urine Yeast (Budding) (None) /hpf Urine Opiates Screen (NotDetected) Ur Oxycodone Screen (NotDetected) Urine Methadone Screen (NotDetected) Ur Propoxyphene Screen (NotDetected) Ur Barbiturates Screen (NotDetected) U Tricyclic Antidepress (NotDetected) Ur Phencyclidine Scrn (NotDetected) Ur Amphetamines Screen (NotDetected) U Methamphetamines Scrn (NotDetected) U Benzodiazepines Scrn (NotDetected) Urine Cocaine Screen (NotDetected) U Marijuana (THC) Screen (NotDetected) Serum Alcohol mg/dL Disposition Clinical Impression: Depression, UTI (urinary tract infection) Disposition: HOME SELF-CARE Condition: Good Instructions (If sedation given, give patient instructions): Urinary Tract Infection in Women (ED), Depression (ED) Additional Instructions: Please use medication as discussed. Please follow-up with family doctor in the next 2 days. Please return to emergency room if the symptoms increase or worsen or for any other concerns. Prescriptions: Cephalexin [Keflex] 500 mg PO Q6HR 7 Days #28 cap Is patient prescribed a controlled substance at d/c from ED?: No Referrals: Reinaldo Randall DO [Primary Care Provider] - 1-2 days Time of Disposition: 20:41
[2019-12-09 19:24] LABS: Glucose,Whole Blood 87 mg/dL (75-99)
[2019-12-09 19:35] LABS: Basophils # (A) 0.1 k/uL (0-0.2); Basophils % (A) 1 %; Eosinophils # (A) 0.3 k/uL (0-0.7); Eosinophils % (A) 3 %; HGB 14.1 gm/dL (11.4-16.0); Lymphocytes # (A) 3.5 k/uL (1.0-4.8); Lymphocytes % (A) 30 %; MCH 32.1 pg (25.0-35.0); MCHC 33.5 g/dL (31.0-37.0); MCV 95.8 fL (80.0-100.0); Mean Platelet Volume 6.8; Monocytes # (A) 0.5 k/uL (0-1.0); Monocytes % (A) 4 %; Neutrophils # (A) 7.1 k/uL (1.3-7.7); Neutrophils % (A) 61 %; Platelet Count 426 k/uL (150-450); RBC 4.39 m/uL (3.80-5.40); WBC 11.8 k/uL (3.8-10.6)
[2019-12-09 19:48] LABS: Amphetamine Screen,Urine Not Detected (NotDetected); Barbiturate Screen,Urine Not Detected (NotDetected); Benzodiazepines Screen,Urine Detected (NotDetected); Cocaine Screen,Urine Not Detected (NotDetected); Methadone Screen, Urine Not Detected (NotDetected); Opiate Screen,Urine Not Detected (NotDetected); Oxycodone Screen, Urine Not Detected (NotDetected); Phencyclidine Screen,Urine Not Detected (NotDetected); Tricyclic Antidepressant,Urine Detected (NotDetected); Urn Cannabinoid Scrn Detected (NotDetected)
[2019-12-09 19:53] LABS: ALT 27 U/L (4-34); AST 45 U/L (14-36); African American GFR (CKD) 74 (>60 ml/min/1.73 sqM); Albumin 4.4 g/dL (3.5-5.0); Alcohol <10 mg/dL; Alkaline Phosphatase 80 U/L (38-126); Anion Gap 10 mmol/L; Blood Urea Nitrogen 17 mg/dL (7-17); Calcium 9.8 mg/dL (8.4-10.2); Carbon Dioxide 23 mmol/L (22-30); Chloride 108 mmol/L (98-107); Glucose 72 mg/dL (74-99); Non-African American GFR(CKD) 65 (>60 ml/min/1.73 sqM); Potassium 4.1 mmol/L (3.5-5.1); Sodium 141 mmol/L (137-145); Total Bilirubin 0.6 mg/dL (0.2-1.3); Total Protein 7.1 g/dL (6.3-8.2)
[2019-12-09 20:01] LABS: Appearance,Urine Clear (Clear); Bacteria,Urine Rare /hpf; Bilirubin,Urine Negative (Negative); Blood,Urine Negative (Negative); Budding Yeast,Urine Occasional /hpf; Color,Urine Light Yellow; Glucose,Urine (UA) Negative (Negative); Ketones,Urine Negative (Negative); Leukocyte Esterase,Urine Moderate (Negative); Nitrite,Urine Negative (Negative); PH, Urine 6.5 (5.0-8.0); Protein,Urine Negative (Negative); RBC,Urine 2 /hpf (0-5); Specific Gravity,Urine 1.007 (1.001-1.035); Squamous Epithelial Cell,Urine 4 /hpf (0-4); Urobilinogen,Urine <2.0 mg/dL (<2.0); WBC,Urine 10 /hpf (0-5)
[2019-12-09 20:40] LABS: Glucose,Whole Blood 151 mg/dL (75-99)
[2019-12-09 21:01] VITALS: BP 137/90; PULSE 97; RESP 16
== END 2019-12-09 21:00 | disposition home or self-care (01) ==
LOC: EC 17:44
DX: F32.9 Major depressive disorder, single episode, unspecified (principal); N39.0 Urinary tract infection, site not specified; F17.200 Nicotine dependence, unspecified, uncomplicated; Z91.048 Other nonmedicinal substance allergy status
CPT/HCPCS: 99284; 82075; 36415; 80053; 85025; 81001; 80306; G0480; 80320

== ENCOUNTER 2019-12-18 14:44 | Emergency (ER) | payer MEDICARE ==
--- NOTE | 2019-12-18 15:22 | ED ---
General Adult HPI - General Chief complaint: Psychiatric Symptoms Stated complaint: mental health Time Seen by Provider: 12/18/19 14:58 Source: patient Mode of arrival: ambulatory Limitations: no limitations - History of Present Illness Initial comments: Dictation was produced using [employer] dictation software. please excuse any grammatical, word or spelling errors. This patient was cared for during a federal and state declared state of emergency secondary to Covid 19 Chief Complaint: 69-year-old female past medical history of psychiatric disease, coronary artery disease, diabetes hyperlipidemia and hypertension presents with wellness check History of Present Illness: 69-year-old female she was brought in by her brother and sister. Patient was recently admitted to inpatient psychiatry. Patient has multiple comorbidities. Patient was at home and according to brother and sister she has not been taking care of herself recently. She has history of psychiatric disease and was admitted to inpatient psych approximately 10 days ago. Mother and sister report that they went to go visit her house and there were several pills scattered all over the ground. They report that she has not able to take care of herself. Patient denies any suicidal or homicidal ideation. Patient also denies this. The ROS documented in this emergency department record has been reviewed and confirmed by me. Those systems with pertinent positive or negative responses have been documented in the HPI. All other systems are other negative and/or noncontributory. PHYSICAL EXAM: General Impression: Alert and oriented x3, not in acute distress HEENT: Normocephalic atraumatic, extra-ocular movements intact, pupils equal and reactive to light bilaterally, mucous membranes moist. Cardiovascular: Heart regular rate and rhythm Chest: Able to complete full sentences, no retractions, no tachypnea Abdomen: abdomen soft, non-tender, non-distended, no organomegaly Musculoskeletal: Pulses present and equal in all extremities, no peripheral jayson a Motor: no focal deficits noted Neurological: CN II-XII grossly intact, no focal motor or sensory deficits noted Skin: Intact with no visualized rashes Psych: Normal affect and mood ED course: 69-year-old female presents with wellness check. Patient has history of psychiatric disease and has not been taking care of herself at home. She has not taken her medications. As upon arrival shows heart rate 170, rest of vital signs within acceptable limits. Patient's prescribed medications were reviewed. Patient has any suicidality or homicidality.Lab data evaluation obtained. CBC unremarkable. Metabolic panel is negative. Tox labs are negative. Patient medically cleared for EPS evaluation. She value I EPS. Recommendation was that patient admitted to inpatient psych. Patient not a candidate for our inpatient psych. Patient be boarded in the ER until a bed for geriatric [facility] becomes available. Patient care sent out to oncoming physician for final disposition. EKG interpretation: Ventricular rate 104, sinus tachycardia,. 192, QRS 120, QTC 473. No IN prolongation, no QTC prolongation, no ST or T-wave changes noted. EKG compared to 02/04/2018 showing no changes. Overall, this EKG is unremarkable - Related Data Home Medications Medication Instructions Recorded Confirmed Ergocalciferol [Vitamin D2 50,000 unit PO Q7D 10/18/19 12/18/19 (DRISDOL)] cloNIDine HCL [Catapres] 0.2 mg PO DAILY PRN 12/18/19 12/18/19 Previous Rx's Medication Instructions Recorded Alogliptin Benzoate [Alogliptin] 25 mg PO DAILY 30 Days tab 12/07/19 Aspirin EC [Ecotrin Low Dose] 81 mg PO DAILY 30 Days tab 12/07/19 Atorvastatin [Lipitor] 10 mg PO HS 30 Days tab 12/07/19 Carvedilol [Coreg] 6.25 mg PO BID 30 Days tab 12/07/19 Gabapentin 800 mg PO TID 30 Days tab 12/07/19 Ibuprofen [Motrin] 800 mg PO TID PRN 30 Days tab 12/07/19 Insulin Glargine [Lantus] 55 unit SQ DAILY 30 Days vial 12/07/19 Isosorbide Mononitrate ER [Imdur] 30 mg PO DAILY 30 Days tab 12/07/19 Omeprazole [PriLOSEC] 20 mg PO DAILY 30 Days cap 12/07/19 QUEtiapine [SEROquel] 50 mg PO HS 30 Days tab 12/07/19 busPIRone HCl [Buspar] 10 mg PO TID PRN 30 Days tab 12/07/19 glipiZIDE [Glucotrol] 10 mg PO BID 30 Days tab 12/07/19 lamoTRIgine [LaMICtal] 100 mg PO DAILY 30 Days tab 12/07/19 lisinopriL 30 mg PO DAILY 30 Days tab 12/07/19 metFORMIN HCL 1,000 mg PO BID 30 Days tab 12/07/19 Cephalexin [Keflex] 500 mg PO Q6HR 7 Days #28 cap 12/09/19 Allergies Allergy/AdvReac Type Severity Reaction Status Date / Time lithium AdvReac severe Verified 12/18/19 22:41 tremors tetanus and diphtheria AdvReac chest Verified 12/18/19 22:41 toxoids pain,high [tetanus & diphtheria blood toxoids] pressure Review of Systems ROS Statement: Those systems with pertinent positive or pertinent negative responses have been documented in the HPI. ROS Other: All systems not noted in ROS Statement are negative. Past Medical History Past Medical History: Coronary Artery Disease (CAD), Diabetes Mellitus, GERD/Reflux, Hyperlipidemia, Hypertension, Liver Disease Additional Past Medical History / Comment(s): states "I have a purple bump on the inside of my lip",NIDDM type II, bilateral peripheral neuropathy bilateral feet, 2014 diabetic ulcer R great toe/foot with amputation, 2017 pt states she had osteomylitis R 4th toe, viral neningitis/encephalopathy, hepatitis C tx and cured, PCOS, UTIs History of Any Multi-Drug Resistant Organisms: C-DIFF Date of last positivie culture/infection: 01/05/15 MDRO Source:: Stool Past Surgical History: Cholecystectomy, Hysterectomy, Orthopedic Surgery, Tonsillectomy Additional Past Surgical History / Comment(s): Amputation right great toe/part of foot, R knee surgery for large cyst/cartilage removed, 2005 cardiac cath showed 1 vessel disease/treated medically, hysterectomy and left a piece of the R ovary, EGD/colonoscopy. Past Anesthesia/Blood Transfusion Reactions: No Reported Reaction Additional Past Anesthesia/Blood Transfusion Reaction / Comment(s): No previous blood transfusions. Past Psychological History: Anxiety, Bipolar, PTSD Smoking Status: Current every day smoker Past Alcohol Use History: None Reported, Abuse Past Drug Use History: None Reported, Marijuana - Past Family History Father Family Medical History: Coronary Artery Disease (CAD), Myocardial Infarction (AL) Additional Family Medical History / Comment(s): Father at age 82 from a massive myocardial infarction. Mother Family Medical History: CVA/TIA Additional Family Medical History / Comment(s): Mother at age 76 from a CVA. Mother had TB Brother(s) Family Medical History: Cancer Additional Family Medical History / Comment(s): Patient has 3 brothers. One brother has from pancreatic cancer. Another brother has stage IV kidney failure and an aortic aneurysm that needs surgery. General Exam Limitations: no limitations Course Vital Signs 12/18/19 12/18/19 12/18/19 14:49 18:22 19:00 Temperature 97.9 F Pulse Rate 117 H 96 Respiratory 18 17 18 Rate Blood Pressure 178/113 167/82 O2 Sat by Pulse 97 98 Oximetry 12/18/19 12/19/19 12/19/19 22:00 00:00 06:40 Temperature 98.0 F 98.1 F Pulse Rate 92 98 Respiratory 17 16 16 Rate Blood Pressure 172/89 148/76 O2 Sat by Pulse 98 97 Oximetry 12/19/19 09:24 Temperature Pulse Rate 98 Respiratory 18 Rate Blood Pressure 159/89 O2 Sat by Pulse 97 Oximetry Medical Decision Making - Medical Decision Making Patient transferred to [facility] for geriatric inpatient psychiatry. - Lab Data Result diagrams: 12/18/19 15:33 12/18/19 15:33 Lab Results 12/18/19 12/18/19 12/18/19 Range/Units 15:33 15:33 15:33 WBC 9.3 (3.8-10.6) k/uL RBC 4.36 (3.80-5.40) m/uL Hgb 13.9 (11.4-16.0) gm/dL Hct 41.9 (34.0-46.0) % MCV 96.0 (80.0-100.0) fL MCH 31.9 (25.0-35.0) pg MCHC 33.2 (31.0-37.0) g/dL RDW 13.0 (11.5-15.5) % Plt Count 405 (150-450) k/uL Neutrophils % 70 % Lymphocytes % 20 % Monocytes % 5 % Eosinophils % 3 % Basophils % 1 % Neutrophils # 6.5 (1.3-7.7) k/uL Lymphocytes # 1.9 (1.0-4.8) k/uL Monocytes # 0.5 (0-1.0) k/uL Eosinophils # 0.3 (0-0.7) k/uL Basophils # 0.1 (0-0.2) k/uL Sodium 141 (137-145) mmol/L Potassium 4.4 (3.5-5.1) mmol/L Chloride 111 H (98-107) mmol/L Carbon Dioxide 21 L (22-30) mmol/L Anion Gap 9 mmol/L BUN 18 H (7-17) mg/dL Creatinine 0.99 (0.52-1.04) mg/dL Est GFR (CKD-EPI)AfAm 67 (>60 ml/min/1.73 sqM) Est GFR (CKD-EPI)NonAf 59 (>60 ml/min/1.73 sqM) Glucose 192 H (74-99) mg/dL Calcium 10.0 (8.4-10.2) mg/dL Total Bilirubin 0.6 (0.2-1.3) mg/dL AST 28 (14-36) U/L ALT 20 (4-34) U/L Alkaline Phosphatase 80 (38-126) U/L Total Protein 7.2 (6.3-8.2) g/dL Albumin 4.3 (3.5-5.0) g/dL Salicylates <1.0 mg/dL Urine Opiates Screen Not Detected (NotDetected) Ur Oxycodone Screen Not Detected (NotDetected) Urine Methadone Screen Not Detected (NotDetected) Ur Propoxyphene Screen Not Detected (NotDetected) Acetaminophen <10.0 ug/mL Ur Barbiturates Screen Not Detected (NotDetected) U Tricyclic Antidepress Detected H (NotDetected) Ur Phencyclidine Scrn Not Detected (NotDetected) Ur Amphetamines Screen Not Detected (NotDetected) U Methamphetamines Scrn Not Detected (NotDetected) U Benzodiazepines Scrn Detected H (NotDetected) Urine Cocaine Screen Not Detected (NotDetected) U Marijuana (THC) Screen Detected H (NotDetected) Serum Alcohol <10 mg/dL Coronavirus (PCR) (Not Detectd) 12/18/19 Range/Units 16:15 WBC (3.8-10.6) k/uL RBC (3.80-5.40) m/uL Hgb (11.4-16.0) gm/dL Hct (34.0-46.0) % MCV (80.0-100.0) fL MCH (25.0-35.0) pg MCHC (31.0-37.0) g/dL RDW (11.5-15.5) % Plt Count (150-450) k/uL Neutrophils % % Lymphocytes % % Monocytes % % Eosinophils % % Basophils % % Neutrophils # (1.3-7.7) k/uL Lymphocytes # (1.0-4.8) k/uL Monocytes # (0-1.0) k/uL Eosinophils # (0-0.7) k/uL Basophils # (0-0.2) k/uL Sodium (137-145) mmol/L Potassium (3.5-5.1) mmol/L Chloride (98-107) mmol/L Carbon Dioxide (22-30) mmol/L Anion Gap mmol/L BUN (7-17) mg/dL Creatinine (0.52-1.04) mg/dL Est GFR (CKD-EPI)AfAm (>60 ml/min/1.73 sqM) Est GFR (CKD-EPI)NonAf (>60 ml/min/1.73 sqM) Glucose (74-99) mg/dL Calcium (8.4-10.2) mg/dL Total Bilirubin (0.2-1.3) mg/dL AST (14-36) U/L ALT (4-34) U/L Alkaline Phosphatase (38-126) U/L Total Protein (6.3-8.2) g/dL Albumin (3.5-5.0) g/dL Salicylates mg/dL Urine Opiates Screen (NotDetected) Ur Oxycodone Screen (NotDetected) Urine Methadone Screen (NotDetected) Ur Propoxyphene Screen (NotDetected) Acetaminophen ug/mL Ur Barbiturates Screen (NotDetected) U Tricyclic Antidepress (NotDetected) Ur Phencyclidine Scrn (NotDetected) Ur Amphetamines Screen (NotDetected) U Methamphetamines Scrn (NotDetected) U Benzodiazepines Scrn (NotDetected) Urine Cocaine Screen (NotDetected) U Marijuana (THC) Screen (NotDetected) Serum Alcohol mg/dL Coronavirus (PCR) Not Detected (Not Detectd) Disposition Clinical Impression: Psychosis Disposition: TRANSFER TO PSYCH HOSP/UNIT Condition: Fair Referrals: Reinaldo Randall DO [Primary Care Provider] - 1-2 days Time of Disposition: 22:32
[2019-12-18 15:52] LABS: Basophils # (A) 0.1 k/uL (0-0.2); Basophils % (A) 1 %; Eosinophils # (A) 0.3 k/uL (0-0.7); Eosinophils % (A) 3 %; HCT 41.9 % (34.0-46.0); HGB 13.9 gm/dL (11.4-16.0); Lymphocytes # (A) 1.9 k/uL (1.0-4.8); Lymphocytes % (A) 20 %; MCH 31.9 pg (25.0-35.0); MCHC 33.2 g/dL (31.0-37.0); Monocytes # (A) 0.5 k/uL (0-1.0); Monocytes % (A) 5 %; Neutrophils # (A) 6.5 k/uL (1.3-7.7); Neutrophils % (A) 70 %; Platelet Count 405 k/uL (150-450); RBC 4.36 m/uL (3.80-5.40); WBC 9.3 k/uL (3.8-10.6)
[2019-12-18 15:59] LABS: ALT 20 U/L (4-34); AST 28 U/L (14-36); Acetaminophen <10.0 ug/mL; African American GFR (CKD) 67 (>60 ml/min/1.73 sqM); Albumin 4.3 g/dL (3.5-5.0); Alcohol <10 mg/dL; Alkaline Phosphatase 80 U/L (38-126); Anion Gap 9 mmol/L; Blood Urea Nitrogen 18 mg/dL (7-17); Carbon Dioxide 21 mmol/L (22-30); Chloride 111 mmol/L (98-107); Glucose 192 mg/dL (74-99); Non-African American GFR(CKD) 59 (>60 ml/min/1.73 sqM); Potassium 4.4 mmol/L (3.5-5.1); Salicylate <1.0 mg/dL; Sodium 141 mmol/L (137-145); Total Bilirubin 0.6 mg/dL (0.2-1.3); Total Protein 7.2 g/dL (6.3-8.2)
[2019-12-18 16:14] LABS: Amphetamine Screen,Urine Not Detected (NotDetected); Barbiturate Screen,Urine Not Detected (NotDetected); Benzodiazepines Screen,Urine Detected (NotDetected); Cocaine Screen,Urine Not Detected (NotDetected); Methadone Screen, Urine Not Detected (NotDetected); Opiate Screen,Urine Not Detected (NotDetected); Oxycodone Screen, Urine Not Detected (NotDetected); Phencyclidine Screen,Urine Not Detected (NotDetected); Tricyclic Antidepressant,Urine Detected (NotDetected); Urn Cannabinoid Scrn Detected (NotDetected)
[2019-12-19] MEDS ORDERED: IBUPROFEN 800 MG TAB PO PRN
[2019-12-19] MEDS ORDERED: LORazepam 1 MG TAB PO STA (00:53)
[2019-12-19 06:41] VITALS: PULSE 98; TEMP 98.1
[2019-12-19] MEDS ORDERED: carvediloL 6.25 MG TAB PO SCH (07:30)
[2019-12-19] MEDS ORDERED: ISOSORBIDE MONONITRATE ER 30 MG TAB.ER.24H PO SCH (09:00)
[2019-12-19] MEDS ORDERED: GABAPENTIN 400 MG CAP PO SCH (09:00)
[2019-12-19] MEDS ORDERED: metFORMIN 500 MG TAB PO SCH (09:00)
[2019-12-19] MEDS ORDERED: lisinopriL 10 MG TAB PO SCH (09:00)
[2019-12-19] MEDS ORDERED: cloNIDine HCL 0.2 MG TAB PO PRN (09:00)
[2019-12-19] MEDS ORDERED: busPIRone HCl 10 MG TAB PO PRN (09:00)
[2019-12-19] MEDS ORDERED: lamoTRIgine 100 MG TAB PO SCH (09:00)
[2019-12-19] MEDS ORDERED: glipiZIDE 10 MG TAB PO SCH (09:00)
[2019-12-19] MEDS ORDERED: LINAGLIPTIN 5 MG TABLET PO SCH (09:00)
[2019-12-19] MEDS ORDERED: ASPIRIN 81 MG PO SCH (09:00)
[2019-12-19] MEDS ORDERED: PANTOPRAZOLE 40 MG TABLET PO SCH (09:00)
[2019-12-19 09:24] VITALS: BP 159/89; RESP 18
[2019-12-19] MEDS ORDERED: ATORVASTATIN 10 MG TAB PO SCH (21:00)
[2019-12-19] MEDS ORDERED: QUEtiapine 50 MG TAB PO SCH (21:00)
== END 2019-12-19 10:01 ==
LOC: EEVIPCON 14:44 → EC 14:44
DX: F29 Unspecified psychosis not due to a substance or known physiological condition (principal); I25.10 Atherosclerotic heart disease of native coronary artery without angina pectoris; I10 Essential (primary) hypertension; F41.9 Anxiety disorder, unspecified; E11.42 Type 2 diabetes mellitus with diabetic polyneuropathy; F17.200 Nicotine dependence, unspecified, uncomplicated; Z91.048 Other nonmedicinal substance allergy status; Z88.7 Allergy status to serum and vaccine; Z90.710 Acquired absence of both cervix and uterus; Z90.721 Acquired absence of ovaries, unilateral
CPT/HCPCS: 99284 ×2; 36415; 93005; 80053; 85025; 80306; 83520; 87635; G0480 ×2; 80320; 80329